=== PATIENT | female | born 1930 | race Caucasian/White ===

== ENCOUNTER 2017-01-13 10:47 | Observation (INO) ==
[2017-01-13 11:16] LABS: Basophils # 0.1 K/mcL (0.0-0.2); Basophils % 0.7 %; Eosinophils # 0.2 K/mcL (0.0-0.6); Eosinophils % 1.6 %; Hematocrit 37.8 % (35.3-44.9); Hemoglobin 12.7 g/dL (11.5-15.4); Immature Granulocytes % 0.2 % (0-4); Immature Platelets 5.6 % (1.1-6.1); Lymphocytes # 1.8 K/mcL (0.6-4.6); Lymphocytes % 17.7 %; Mean Corpuscular HGB Conc 33.6 g/dL (31.6-35.5); Mean Corpuscular Hemoglobin 29.8 pg (28.0-33.3); Mean Corpuscular Volume 88.7 fL (83.0-100.0); Mean Platelet Volume 10.5 fL (9.4-12.4); Monocytes # 0.9 K/mcL (0.0-1.3); Monocytes % 8.8 %; Platelet Count 246 K/mcL (140-400); Red Blood Count 4.26 M/mcL (3.82-4.97); Red Cell Distribution Width 14.4 % (11.5-14.5)
--- NOTE | 2017-01-13 11:17 | Emergency Department Note ---
Disposition Clinical Impression: Symptomatic bradycardia Atrial fibrillation Qualifiers: Atrial fibrillation type: paroxysmal Qualified Code(s): I48.0 - Paroxysmal atrial fibrillation Disposition: Admitted As Inpatient Condition: Good Referrals: NONE,PCP [Non-Partnered Physician] - Forms: ED Satisfaction Letter Time of Disposition: 13:13 Arrhythmia/Palpitations HPI - General Chief Complaint: ED Arrhythmia/Palpitations Stated Complaint: heart beat feels fast Time Seen by Provider: 01/13/17 10:57 Source: patient, family Limitations: no limitations Nursing Notes Reviewed: Yes Vital Signs Reviewed: Yes - History of Present Illness HPI Narrative: 87 year old female with HX of paroxsymal atrial fibrillation states that he is on rate controlling medication and blood thinners. States taht she woke up this morning and her heart rate felt like it was fast withou chest pain or shortness of breath. Will staets that this has happened to her in the past but it has been a long tie since she has been admitted to the hospital for it. Patient denies chest pain, shortness of breath, nausea, vomitting, or abdominlal pain. She does have elevated blood pressures and states that she was most recently told that she has a growth on her brain and her vision has become more blurry without increased headaches. It appears patient is in Atrial fibrillation at this time. - Related Data Home Medications Medication Instructions Recorded Confirmed Aspirin [Adult Low Dose Aspirin EC] 81 mg PO DAILY 08/07/15 08/07/15 Atorvastatin [Lipitor] 40 mg PO DAILY 08/07/15 08/07/15 Clopidogrel [Plavix] 75 mg PO DAILY 08/07/15 08/07/15 Hydrochlorothiazide [Microzide] 12.5 mg PO DAILY 08/07/15 08/07/15 Losartan [Cozaar] 50 mg PO DAILY 08/07/15 08/07/15 Metoprolol [Lopressor] 25 mg PO BID 08/07/15 08/07/15 Potassium Chloride [K-Tab ER] 20 meq PO DAILY 08/07/15 08/07/15 metFORMIN [Glucophage] 500 mg PO BIDWM 08/07/15 08/07/15 Allergies Allergy/AdvReac Type Severity Reaction Status Date / Time LOWELL Inhibitors Allergy Rash Verified 08/07/15 12:34 Constitutional: Denies: fever, chills, weakness, weight change Eyes: Denies: eye pain, eye discharge, vision change ENT ED: Denies: ear pain, throat pain, dental pain, hearing loss, epistaxis, congestion, dysphagia Cardiovascular: Reports: palpitations. Denies: chest pain, dyspnea on exertion , edema, syncope Respiratory: Denies: cough, dyspnea, wheezes, hemoptysis, stridor Gastrointestinal: Denies: abdominal pain, nausea, vomiting, diarrhea, constipation, hematemesis, melena, hematochezia Genitourinary: Denies: dysuria, frequency, hematuria, discharge Musculoskeletal: Denies: back pain, neck pain, arthralgia, myalgia Integumentary: Denies: rash, abrasion, lesions Neurological: Denies: headache, weakness, numbness, paresthesias, confusion, abnormal gait, vertigo Psychiatric: Denies: anxiety, depression, suicidal thoughts, homicidal thoughts , auditory hallucinations, visual hallucinations Endocrine: Denies: fatigue Hematological/Lymphatic: Denies: easy bleeding, easy bruising Allergic/Immunologic: Denies: facial swelling, urticaria Past Medical History - Past Medical History Medical history: Reports: atrial fibrillation, coronary artery disease, diabetes , hyperlipidemia, hypertension, other Surgical history: Reports: angioplasty/stent, cataract, hysterectomy Psychiatric history: Reports: no psych history GOODWILL AMBASSADOR history: Reports: no GOODWILL AMBASSADOR history - Social History Smoking Status: Never smoker Smokeless Tobacco Status: No Alcohol use: Reports: none Drug use: Reports: none Physical Exam - General Limitations: no limitations General appearance: alert, in no apparent distress - Head Head exam: atraumatic, normocephalic, normal inspection - Eye Eye exam: Present: normal appearance, PERRL, EOMI - Expanded Eye Exam Pupils: Left: reactive - ENT ENT exam: normal exam, normal oropharynx, mucous membranes moist - Expanded ENT Exam External ear exam: Present: normal external inspection Mouth exam: Present: normal external inspection Teeth exam: Present: normal inspection Throat exam: Present: normal inspection - Neck Neck exam: Present: normal inspection, full ROM, trachea midline - Chest Chest inspection: Present: normal inspection, symmetric chest wall rise - Respiratory Respiratory exam: Present: normal lung sounds bilaterally - Cardiovascular Cardiovascular exam: Present: tachycardia, irregular rhythm, normal heart sounds - Abdominal Exam Abdominal exam: Present: soft, Non-Tender. Absent: tenderness, distention, guarding, rebound, rigidity - Extremities Exam Extremities exam: Present: normal inspection, full ROM. Absent: tenderness, pedal edema - Expanded Upper Extremity Exam Shoulder exam: Present: normal inspection, full ROM Arm exam: Present: normal inspection, full ROM Elbow exam: Present: normal inspection, full ROM Forearm/Wrist exam: Present: normal inspection, full ROM Hand exam: Present: normal inspection, full ROM Vascular exam: Normal: capillary refill, radial pulse - Expanded Lower Extremity Exam Hip/Pelvis exam: Present: normal inspection, full ROM Upper leg exam: Present: normal inspection, full ROM Knee exam: Present: normal inspection, full ROM Lower leg exam: Present: normal inspection, full ROM Ankle exam: Present: normal inspection, full ROM Foot/toe exam: Present: normal inspection, full ROM Neurovascular/Tendon exam: Absent: motor deficit, sensory deficit, tendon deficit - Back Exam Back exam: Present: normal inspection, full ROM. Absent: tenderness - Neurological Exam Neurological exam: Present: alert, oriented X3 - Expanded Neurological Exam Patient oriented to: Present: person, place, time Coma Scale Eye Opening: Spontaneous Coma Scale Motor Response: Obeys Commands Coma Scale Verbal Response: Oriented Coma Scale Total: 15 - Psychiatric Psychiatric exam: Present: normal affect, normal mood - Skin Skin exam: Present: warm, dry, intact, normal color Course Course Narrative: we will treat her atril fibrillation with cardizem and do a chest pain workup on patient. If she does not convert then we will admit to medicine. - Reevaluation(s) Reevaluation #1: bro had a low heart rate alert it appears she is in juntional bradycardia and has converted out of atrial flutter. WE will continue to monitor Time: 11:58 - Consultations Consultation #1: discussed case with Dr. Kang and she accepts bro to her service. Bro is agreeable to plan. Time: 13:13 Vital Signs Temperature 97.8 F 01/13/17 10:54 Pulse Rate 127 01/13/17 10:54 Respiratory Rate 18 01/13/17 10:54 Blood Pressure 162/102 01/13/17 10:54 O2 Sat by Pulse Oximetry 95 01/13/17 10:54 Temperature 97.8 F 01/13/17 10:54 Pulse Rate 56 01/13/17 13:06 Respiratory Rate 18 01/13/17 13:06 Blood Pressure 140/65 01/13/17 13:06 O2 Sat by Pulse Oximetry 96 01/13/17 13:06 Oxygen Delivery Oxygen Delivery Room Air Arrhythmia/Palpitations - Lab Data Result diagrams: 01/13/17 11:09 01/13/17 11:09 Lab Results 01/13/17 01/13/17 01/13/17 Range/Units 11:09 11:09 11:09 WBC (4.3-11.1) K/mcL RBC (3.82-4.97) M/mcL Hgb (11.5-15.4) g/dL Hct (35.3-44.9) % MCV (83.0-100.0) fL MCH (28.0-33.3) pg MCHC (31.6-35.5) g/dL RDW (11.5-14.5) % Plt Count (140-400) K/mcL MPV (9.4-12.4) fL Immature Gran % (0-4) % Seg Neutrophils % % Lymphocytes % % Monocytes % % Eosinophils % % Basophils % % Neutrophils # (1.6-8.9) K/mcL Lymphocytes # (0.6-4.6) K/mcL Monocytes # (0.0-1.3) K/mcL Eosinophils # (0.0-0.6) K/mcL Basophils # (0.0-0.2) K/mcL Immature Plt Fraction (1.1-6.1) % PT 11.6 (9.4-12.1) Seconds INR 1.1 APTT 32.2 (26.0-36.0) Seconds Sodium (136-145) mEq/L Potassium (3.5-4.5) mEq/L Chloride (98-109) mEq/L Carbon Dioxide (19-29) mEq/L BUN (7-20) mg/dL Creatinine (0.57-1.11) mg/dL Est GFR ( Amer) (> 60) Est GFR (Non-Af Amer) (> 60) BUN/Creatinine Ratio (6-26) Glucose (70-99) mg/dL Calculated Osmolality (280-300) Calcium (8.6-10.8) mg/dL Total Bilirubin 1.2 (0.2-1.2) mg/dL Direct Bilirubin 0.5 (0.0-0.5) mg/dL Indirect Bilirubin 0.7 (0.0-1.2) mg/dL AST 17 (5-34) Units/L ALT 15 (0-55) Units/L Alkaline Phosphatase 46 (38-126) Units/L Troponin I (0-0.03) ng/mL B-Natriuretic Peptide 318 H (0-100) pg/mL Serum Total Protein 7.5 (6.0-8.3) g/dL Albumin 4.1 (3.5-5.0) g/dL Globulin 3.4 (2.4-3.5) g/dL Albumin/Globulin Ratio 1.2 (1.1-2.2) Lipase 21 (8-78) Units/L 01/13/17 01/13/17 01/13/17 Range/Units 11:09 11:09 11:09 WBC 9.9 (4.3-11.1) K/mcL RBC 4.26 (3.82-4.97) M/mcL Hgb 12.7 (11.5-15.4) g/dL Hct 37.8 (35.3-44.9) % MCV 88.7 (83.0-100.0) fL MCH 29.8 (28.0-33.3) pg MCHC 33.6 (31.6-35.5) g/dL RDW 14.4 (11.5-14.5) % Plt Count 246 (140-400) K/mcL MPV 10.5 (9.4-12.4) fL Immature Gran % 0.2 (0-4) % Seg Neutrophils % 71.0 % Lymphocytes % 17.7 % Monocytes % 8.8 % Eosinophils % 1.6 % Basophils % 0.7 % Neutrophils # 7.0 (1.6-8.9) K/mcL Lymphocytes # 1.8 (0.6-4.6) K/mcL Monocytes # 0.9 (0.0-1.3) K/mcL Eosinophils # 0.2 (0.0-0.6) K/mcL Basophils # 0.1 (0.0-0.2) K/mcL Immature Plt Fraction 5.6 (1.1-6.1) % PT (9.4-12.1) Seconds INR APTT (26.0-36.0) Seconds Sodium 140 (136-145) mEq/L Potassium 3.9 (3.5-4.5) mEq/L Chloride 105 (98-109) mEq/L Carbon Dioxide 24 (19-29) mEq/L BUN 18 (7-20) mg/dL Creatinine 0.82 (0.57-1.11) mg/dL Est GFR ( Amer) > 60 (> 60) Est GFR (Non-Af Amer) > 60 (> 60) BUN/Creatinine Ratio 22 (6-26) Glucose 161 H (70-99) mg/dL Calculated Osmolality 295 (280-300) Calcium 9.7 (8.6-10.8) mg/dL Total Bilirubin (0.2-1.2) mg/dL Direct Bilirubin (0.0-0.5) mg/dL Indirect Bilirubin (0.0-1.2) mg/dL AST (5-34) Units/L ALT (0-55) Units/L Alkaline Phosphatase (38-126) Units/L Troponin I 0.00 (0-0.03) ng/mL B-Natriuretic Peptide (0-100) pg/mL Serum Total Protein (6.0-8.3) g/dL Albumin (3.5-5.0) g/dL Globulin (2.4-3.5) g/dL Albumin/Globulin Ratio (1.1-2.2) Lipase (8-78) Units/L - EKG Data EKG attestation: Yes I reviewed and interpreted this EKG. EKG results narrative: atrial flutter with rate of 115. LVH and non spefici ST-T changes. NO STEMI. changed from 08/07/15 (NSR). 1056 junctional bradycardia with rate of 51. change from EKG #1 converted out of atrial fibrillation. 1145 sinus bradycardia with 1degree AV block with rate of 58. NO STEMI. 1215
[2017-01-13 11:30] LABS: BUN/Creatinine Ratio 22 (6-26); Blood Urea Nitrogen 18 mg/dL (7-20); Calcium 9.7 mg/dL (8.6-10.8); Carbon Dioxide 24 mEq/L (19-29); Chloride 105 mEq/L (98-109); Glucose 161 mg/dL (70-99); Osmolality,Calculated 295 (280-300); Potassium 3.9 mEq/L (3.5-4.5); Sodium 140 mEq/L (136-145); eGFR For African Americans > 60 (> 60); eGFR For Non-African Americans > 60 (> 60)
[2017-01-13 11:32] LABS: Albumin 4.1 g/dL (3.5-5.0); Albumin/Globulin Ratio 1.2 (1.1-2.2); Bilirubin,Direct 0.5 mg/dL (0.0-0.5); Bilirubin,Indirect 0.7 mg/dL (0.0-1.2); Bilirubin,Total 1.2 mg/dL (0.2-1.2); Globulin 3.4 g/dL (2.4-3.5); Total Protein 7.5 g/dL (6.0-8.3)
[2017-01-13 12:19] LABS: INR 1.1; Prothrombin Time 11.6 Seconds (9.4-12.1)
[2017-01-13 12:22] LABS: Activated Partial Thrombo Time 32.2 Seconds (26.0-36.0)
[2017-01-13 13:57] LABS: Bilirubin,Urine Negative (Negative); Blood,Urine Negative (Negative); Clarity,Urine Clear (Clear); Color,Urine Yellow (Yellow); Glucose,Urine (UA) Normal (Normal); Ketones,Urine Negative (Negative); Leukocyte Esterase,Urine Small (Negative); Nitrite,Urine Negative (Negative); PH,Urine 7.5 pH Units (5.0-8.0); Protein,Urine Negative (Neg-Trace); Specific Gravity,Urine 1.008 (1.010-1.025); Urobilinogen,Urine Normal (Normal)
[2017-01-13 13:59] LABS: Bacteria,Urine Many per hpf (None-Few); Hyaline Casts,Urine None Seen per lpf (None-Few); RBC,Urine 0-3 per hpf (0-3); Squamous Epithelial Cell,Urine Few per lpf (None-Few)
[2017-01-13] MEDS ORDERED: Naloxone 0.4 MG/ML INJ IVP PRN (15:07)
[2017-01-13] MEDS ORDERED: Acetaminophen 325 MG TABLET PO PRN (15:27)
--- NOTE | 2017-01-13 15:46 | Internal Med History&Physical ---
<Ni Olevra - Last Filed: 01/13/17 15:03> Date of Encounter: 01/13/17 Time of Encounter: 15:45 Assessment and Plan (1) Symptomatic bradycardia Current visit: Yes Status: Acute Patient coverted to a junctional bradycardia with HR in low 50s and experienced dizziness and lightheadedness when that occurred in the ED. Her rhythm further evolved back to her baseline with sinus bradycardia and first degree AV block. She is now asymptomatic. Continuous satellite project site monitor. Consider consult to cardiology if arrhythmia recurs. (2) Atrial fibrillation Current visit: Yes Status: Acute Patient presented with palpitations and was found to be in Afib/aflutter with RVR. She reports occasional similar episoded of palpitations and chest pain lasting up to 2 hours. She converted without intervention. Continuous satellite project site monitor. Continue home dose of metoprolol. Patient not on anti-coagulation. Consider consult to cardiology if RVR recurrs. Qualifiers: Atrial fibrillation type: paroxysmal Qualified Code(s): I48.0 - Paroxysmal atrial fibrillation (3) Type 2 diabetes mellitus Current visit: Yes Status: Acute Hold metformin check Hgb A1c diabetic, heart healthy diet check blood sugar ACHS sliding scale correction dose ACHS hypoglycemic protocol. Qualifiers: Diabetes mellitus complication status: without complication Diabetes mellitus senior living insulin use: without terminal supervisor use Qualified Code(s): E11.9 - Type 2 diabetes mellitus without complications (4) History of coronary artery disease Current visit: Yes Status: Chronic CAD s/p Stents to LAD and OM. Patient did have chest pain this morning while she was having palpitations, likely secondary to her afib/RVR. Troponin negative at 0.00. EKG has returned to baseline. Continuous satellite project site monitor serial troponins continue aspirin, plavix, metoprolol, and statin. (5) DVT prophylaxis Current visit: Yes Status: Acute anti-embolic stockings heparin 5000u SQ TID Internal Medicine - H&P: HPI Chief complaint: palpitations History of present illness: Ms. Urena is a 87 year old female with HTN, HLD, type 2 DM, CAD s/p stent placement, Afib presents to the ED today with complaints of palpitations and chest pain. Patient reports when she woke this morning, she felt her heart racing and her chest was aching. She took 2 nitro with no resolution of symptoms so she came to the ED. She reports she has occasional similar episodes of palpitations and chest pain that usually resolve after about 2 hours , but came because this episode did not resolve. While in the ED, she converted to a junctional bradycardic rhythm without intervention, and at that time became lightheaded. Otherwise she denies shortness of breath, nausea, vomiting, fever, chills, sweats, dysuria, diarrhea. Evaluation in the ED included EKG initially which showed Aflutter with RVR, HR of 115 at 10:56. She converted on her own and EKG at 11:45 showed junctional bradycardia with HR of 51. Final EKG in the ED at 12:15 showed sinus bradycardia with 1st degree AV block, HR of 58, and consistent with her baseline EKG from 08/2015. Troponin was negative at 0.00. BNP was elevated at 318. CXR showed no acute process with mild cardiomegaly. Head CT showed no acute intracranial abnormality. On exam, patient alert and oriented, in no distress. Heart had regular rhythm with rate in the low 60s. Lungs were clear bilaterally. She had BLE +2 edema, which she reports is consistent with her baseline. Past Med Surg Social Fam HX - Past Medical History Medical history: atrial fibrillation, coronary artery disease, diabetes, hyperlipidemia, hypertension, other Psychiatric history: no psych history - Past Surgical History Surgical History: angioplasty/stent, cataract, hysterectomy - Social History Smoking Status: Never smoker Smokeless Tobacco Status: No Alcohol use: none Drug use: none - Family History Mother Living Status: Age at : 78 Hx Family Cancer: Yes Father Living Status: Age at : 70 Hx Family Cardiac Disorders: Yes Internal Medicine - H&P: Meds Aspirin [Adult Low Dose Aspirin EC] 81 mg PO DAILY 08/07/15 [History] Atorvastatin [Lipitor] 40 mg PO DAILY 08/07/15 [History] Clopidogrel [Plavix] 75 mg PO DAILY 08/07/15 [History] Hydrochlorothiazide [Microzide] 12.5 mg PO DAILY 08/07/15 [History] Losartan [Cozaar] 50 mg PO DAILY 08/07/15 [History] Metoprolol [Lopressor] 25 mg PO BID 08/07/15 [History] Potassium Chloride [K-Tab ER] 20 meq PO DAILY 08/07/15 [History] metFORMIN [Glucophage] 500 mg PO BIDWM 08/07/15 [History] Allergies LOWELL Inhibitors Allergy (Verified 01/13/17 14:03) See Comments PATIENT STATES CAUSES SWELLING All Systems PM: A 10-system review of systems was performed and is negative for pertinent findings except as documented above in the HPI. - Constitutional Constitutional: no chills, no fever(s), no night sweats - EENT Eyes: no change in vision, no discharge, no pain, no photophobia Ears: no ear discharge, no ear pain, no tinnitus Nose, mouth and throat: no dysphagia, no nasal discharge, no neck pain, no sore throat - Cardiovascular Cardiovascular ROS IM: chest pain, lightheadedness, palpitations, no diaphoresis , no dyspnea, no syncope - Respiratory Respiratory: no cough, no dyspnea, no wheezing, no excessive phlegm production - Gastrointestinal Gastrointestinal: no abdominal pain, no diarrhea, no hematemesis, no hematochezia, no melena, no nausea, no vomiting - Genitourinary Genitourinary: no change in urinary stream, no dysuria, no flank pain, no hematuria - Musculoskeletal Musculoskeletal ROS IM: no numbness, no tingling - Integumentary Integumentary IM: no rash, no unusual bruising - Neurological Neurological ROS: no confusion, no convulsions, no focal weakness, no numbness, no tingling, no tremor(s) - Hematologic/Lymphatic Hematologic/Lymphatic: no easy bruising - Constitutional Vitals: Temp Pulse Resp BP Pulse Ox 97.8 F 61 18 108/93 98 01/13/17 10:54 01/13/17 14:12 01/13/17 14:12 01/13/17 14:12 01/13/17 14:12 General appearance: Present: A&O X 3, pleasant, no acute distress - Head Head exam: Present: atraumatic, normocephalic - Eye Eye exam: Present: PERRL, conjuntiva pink, sclera anicteric Pupils: Present: PERRL - Neck Neck exam general surgery: Present: supple, trachea midline. Absent: lymphadenopathy - Respiratory Respiratory exam: Present: CTAB. Absent: accessory muscle use, rales, rhonchi, wheezes - Cardiovascular Cardiovascular exam: Present: RRR, +S1, +S2, systolic murmur. Absent: diastolic murmur, gallop, rubs - GI/Abdominal GI/Abdominal exam: Present: normal bowel sounds, soft, no peritoneal signs. Absent: distended, tenderness - Extremities Exam Extremities exam: Present: warm, radial pulses palpable and symmetrical. Absent : calf tenderness, cyanotic, pedal edema - Neurological Exam Neurological exam: Present: CN II-XII intact, oriented X3, no focal deficits. Absent: facial droop, speech deficit - Skin Skin exam: Present: dry, intact Internal Med - H&P Results - Labs CBC & Chem 7: 01/13/17 11:09 01/13/17 11:09 Labs: Short CBC 01/13/17 Range/Units 11:09 WBC 9.9 (4.3-11.1) K/mcL Hgb 12.7 (11.5-15.4) g/dL Hct 37.8 (35.3-44.9) % Plt Count 246 (140-400) K/mcL Neutrophils # 7.0 (1.6-8.9) K/mcL BMP 01/13/17 11:09 Sodium 140 Potassium 3.9 Chloride 105 Carbon Dioxide 24 BUN 18 Creatinine 0.82 Glucose 161 H Calcium 9.7 Cardiac Enzymes 01/13/17 Range/Units 11:09 Troponin I 0.00 (0-0.03) ng/mL Liver Function 01/13/17 Range/Units 11:09 Total Bilirubin 1.2 (0.2-1.2) mg/dL Direct Bilirubin 0.5 (0.0-0.5) mg/dL AST 17 (5-34) Units/L ALT 15 (0-55) Units/L Alkaline Phosphatase 46 (38-126) Units/L Albumin 4.1 (3.5-5.0) g/dL Urine 01/13/17 Range/Units 13:48 Urine Color Yellow (Yellow) Urine Clarity Clear (Clear) Urine pH 7.5 (5.0-8.0) pH Units Ur Specific [place] 1.008 L (1.010-1.025) Urine Protein Negative (Neg-Trace) mg/dL Urine Glucose (UA) Normal (Normal) mg/dL - Impressions ITS Impressions Chest X-Ray 01/13/17 10:57 IMPRESSION: No acute process. Mild cardiomegaly D/ / Luciano Cole MD / Luciano Cole MD Interpreting Provider: Luciano Cole MD Head CT 01/13/17 12:10 IMPRESSION: No acute intracranial abnormality. Old right occipital lobe infarct. Mild chronic small vessel ischemic disease within the periventricular white matter. D/ / 01/13/2017 12:48:26 Luciano Cole MD / carmelina Interpreting Provider: Luciano Cole MD - Diagnostic Studies Chest x-ray Additional comments: Chest X-Ray 01/13/17 10:57 IMPRESSION: No acute process. Mild cardiomegaly D/ / Luciano Cole MD / Luciano Cole MD Interpreting Provider: Luciano Cole MD CT scan - head Additional comments: Head CT 01/13/17 12:10 IMPRESSION: No acute intracranial abnormality. Old right occipital lobe infarct. Mild chronic small vessel ischemic disease within the periventricular white matter. D/ / 01/13/2017 12:48:26 Luciano Cole MD / carmelina Interpreting Provider: Luciano Cole MD <Gus Kang - Last Filed: 01/13/17 18:17> Date of Encounter: 01/13/17 Internal Medicine - H&P: HPI History of present illness: Ms. Urena is a 87 year old female All Systems PM: A 10-system review of systems was performed and is negative for pertinent findings except as documented above in the HPI. - Constitutional Vitals: Temp Pulse Resp BP Pulse Ox 97.5 F L 62 18 128/66 97 01/13/17 16:36 01/13/17 16:36 01/13/17 16:36 01/13/17 16:36 01/13/17 16:41 Internal Med - H&P Results - Labs CBC & Chem 7: 01/13/17 11:09 01/13/17 11:09 Labs: Cardiac Enzymes 01/13/17 Range/Units 17:26 Troponin I 0.01 (0-0.03) ng/mL - Attending Attestation I examined this patient and my medical decision-making was reviewed with the HASHER OPERATOR. I agree with the documented findings, disposition and treatment plan as described
[2017-01-13] MEDS ORDERED: D5% in Water 1,000 ML IVC PRN (16:00)
[2017-01-13] MEDS ORDERED: Dextrose Gel 15 GM PO PRN ×2 (16:00)
[2017-01-13] MEDS ORDERED: *HR* Dextrose 50 % in Water (Syg) 50 ML SYRINGE IVP PRN (16:00)
[2017-01-13] MEDS: Insulin LISPRO 300 UNITS/3 ML VIAL SQ SCH ×2 (17:16→21:30)
[2017-01-13 17:48] LABS: Hemoglobin A1C 6.1 %
[2017-01-13] MEDS: *HR* Heparin 5,000 UNIT/ML VIAL SQ SCH (20:47)
[2017-01-14 04:22] LABS: Basophils # 0.1 K/mcL (0.0-0.2); Basophils % 0.7 %; Eosinophils # 0.5 K/mcL (0.0-0.6); Eosinophils % 4.8 %; Hematocrit 34.1 % (35.3-44.9); Immature Granulocytes % 0.3 % (0-4); Lymphocytes % 21.5 %; Mean Corpuscular HGB Conc 32.6 g/dL (31.6-35.5); Mean Corpuscular Hemoglobin 30.2 pg (28.0-33.3); Mean Corpuscular Volume 92.7 fL (83.0-100.0); Monocytes # 0.9 K/mcL (0.0-1.3); Monocytes % 9.7 %; Nucleated Red Blood Cells 0.2 /100 WBC (0); Platelet Count 202 K/mcL (140-400); Red Blood Count 3.68 M/mcL (3.82-4.97); Red Cell Distribution Width 14.6 % (11.5-14.5)
[2017-01-14 04:26] LABS: Hemoglobin 11.1 g/dL (11.5-15.4)
[2017-01-14 04:38] LABS: BUN/Creatinine Ratio 29 (6-26); Blood Urea Nitrogen 25 mg/dL (7-20); Carbon Dioxide 25 mEq/L (19-29); Chloride 109 mEq/L (98-109); Chol/HDL Ratio 2.9 (0-4.9); Cholesterol 117 mg/dL (< 200); Glucose 136 mg/dL (70-99); HDL Cholesterol 41 mg/dL (40-59); LDL Cholesterol,Calculated 59 mg/dL (0-99); Osmolality,Calculated 298 (280-300); Potassium 3.8 mEq/L (3.5-4.5); Sodium 141 mEq/L (136-145); Triglycerides 83 mg/dL (< 150); eGFR For African Americans > 60 (> 60); eGFR For Non-African Americans > 60 (> 60)
[2017-01-14] MEDS: *HR* Heparin 5,000 UNIT/ML VIAL SQ SCH ×3 (05:54→21:06)
[2017-01-14] MEDS: Aspirin Enteric Coated 81 MG Tablet PO SCH (08:44)
[2017-01-14] MEDS: hydroCHLOROthiazide 25 MG TABLET PO SCH (08:44)
[2017-01-14] MEDS: Insulin LISPRO 300 UNITS/3 ML VIAL SQ SCH ×4 (08:45→21:04)
--- NOTE | 2017-01-14 11:29 | Internal Med Progress Note ---
Date of Encounter: 01/14/17 Time of Encounter: 11:28 - Assessment and plan (1) Symptomatic bradycardia Current Visit: Yes Status: Acute Assessment and plan: Patient initially presented with palpitations and had atrial fibrillation with RVR, which converted to junctional rhythm and then sinus bradycardia; she likely has conduction abnormality. Currently heart rate controlled; continue to hold beta bharath and Telemetry monitoring; check 2D Echocardiogram and Cardiology consult; (2) Atrial fibrillation Current Visit: Yes Status: Chronic Assessment and plan: Patient has h/o- atrial fibrillation, not noted to be on manager long term care anticoagulation; continue Telemetry; Cardiology evaluation for pacemaker placement; Qualifiers: Atrial fibrillation type: paroxysmal Qualified Code(s): I48.0 - Paroxysmal atrial fibrillation (3) Diabetes Current Visit: Yes Status: Chronic Assessment and plan: Accucheck blood glucose monitoring with sliding scale insulin as needed; diabetic diet; Qualifiers: Diabetes mellitus type: type 2 Diabetes mellitus complication status: with unspecified complications Diabetes mellitus care home insulin use: without care home use Qualified Code(s): E11.8 - Type 2 diabetes mellitus with unspecified complications (4) History of coronary artery disease Current Visit: Yes Status: Chronic (5) History of hypertension Current Visit: Yes Status: Chronic - Subjective Interval history: Denies chest pain, palpitations, dyspnea; has chronic leg swelling; improved dizziness and weakness; - Constitutional Vitals: Temp Pulse Resp BP Pulse Ox 97.7 F 53 18 174/68 98 01/14/17 07:14 01/14/17 07:14 01/14/17 07:14 01/14/17 07:14 01/14/17 07:14 General appearance: Present: A&O X 3, answers questions appropriately - Respiratory Respiratory exam: Present: CTAB. Absent: accessory muscle use, rales, rhonchi, wheezes - Cardiovascular Cardiovascular exam: Present: bradycardia, RRR, +S1, +S2, systolic murmur. Absent: diastolic murmur, gallop, rubs - Extremities Exam Extremities exam: Present: full ROM, pedal edema (1+ lower leg edema), warm, radial pulses palpable and symmetrical. Absent: calf tenderness, cyanotic - Neurological Exam Neurological exam: Present: CN II-XII intact, oriented X3, no focal deficits. Absent: pronater drift, facial droop, speech deficit Internal Medicine: Result - Labs CBC & Chem 7: 01/14/17 03:45 01/14/17 03:45 Labs: Short CBC 01/14/17 Range/Units 03:45 WBC 9.5 (4.3-11.1) K/mcL Hgb 11.1 L D (11.5-15.4) g/dL Hct 34.1 L (35.3-44.9) % Plt Count 202 (140-400) K/mcL Neutrophils # 6.0 (1.6-8.9) K/mcL BMP 01/14/17 03:45 Sodium 141 Potassium 3.8 Chloride 109 Carbon Dioxide 25 BUN 25 H Creatinine 0.87 Glucose 136 H Calcium 9.0 Cardiac Enzymes 01/13/17 01/13/17 Range/Units 17:26 23:08 Troponin I 0.01 0.01 (0-0.03) ng/mL - ABG Interpretation ABG results: PT/INR, D-dimer PT 11.6 Seconds (9.4-12.1) 01/13/17 11:09 Consult Discharge Plan - Plan Referrals: Tomas Gallegos DO [Primary Care Provider] -
--- NOTE | 2017-01-14 17:52 | Electrocardiograph Report ---
[address] [place] [address] Test Date: 2017-01-13 Pat Name: Sharda Urena Department: 104 Room: 2NE20 Gender: F [employer] Consultant: BRANDON : 1930 Requested By: Denise Hidalgo Order Number: [id number] Reading MD: Rosalinda Barnes Measurements Intervals [place] Rate: 58 P: 79 AL: 225 QRS: -18 QRSD: 100 T: 46 QT: 443 QTc: 441 Interpretive Statements SINUS BRADYCARDIA WITH FIRST DEGREE AV BLOCK MINIMAL VOLTAGE CRITERIA FOR LVH POSSIBLE ANTERIOR MYOCARDIAL INFARCTION, OF INDETERMINATE AGE INFERIOR MYOCARDIAL INFARCTION, PROBABLY OLD Electronically Signed On 01-14-2017 17:51:04 EDT by Rosalinda Barnes
--- NOTE | 2017-01-14 17:52 | Electrocardiograph Report ---
[place] [id number] Test Date: 2017-01-13 Pat Name: Sharda Urena Department: 104 Room: 2NE20 Gender: F [employer]ing Officer: ZOHREH : 1930 Requested By: Leticia Gonzalez Order Number: [id number] Reading MD: Rosalinda Barnes Measurements Intervals [place] Rate: 51 P: 270 HI: 124 QRS: -18 QRSD: 100 T: 40 QT: 432 QTc: 409 Interpretive Statements POSSIBLE ECTOPIC ATRIAL RHYTHM MINIMAL VOLTAGE CRITERIA FOR LVH POSSIBLE ANTERIOR MYOCARDIAL INFARCTION, PROBABLY OLD INFERIOR MYOCARDIAL INFARCTION, PROBABLY OLD Electronically Signed On 01-14-2017 17:50:40 EDT by Rosalinda Barnes
[2017-01-15] MEDS: *HR* Heparin 5,000 UNIT/ML VIAL SQ SCH ×3 (05:44→22:23)
[2017-01-15] MEDS: Aspirin Enteric Coated 81 MG Tablet PO SCH (07:39)
[2017-01-15] MEDS: hydroCHLOROthiazide 25 MG TABLET PO SCH (07:39)
[2017-01-15] MEDS: Insulin LISPRO 300 UNITS/3 ML VIAL SQ SCH ×4 (07:52→22:30)
--- NOTE | 2017-01-15 10:03 | Cardiology Consult Note ---
<Phil Timmons - Last Filed: 01/15/17 17:37> Date of Encounter: 01/15/17 Time of Encounter: 09:30 Assessment and Plan (1) Symptomatic bradycardia Status: Acute Current EKG shows a sinus bradycardia with a 1st degree AV block, which is the patient's baseline. Current echocardiogram shows severely dialated LA and mildly dilated RA. Thyroid studies are recommened. Patient does not snore or display any dyspnea at night. She is very functional at home and is able to ambulate with ease without shortness of breath or chest pain. Pacemaker is not recommended at this point. (2) Atrial fibrillation Status: Chronic Patient is very functional at home and is able to ambulate without shortness of breath or chest pain. She denies any history of falls. I believe it would be safe to continue anticoagulation with aspirin and plavix. Qualifiers: Atrial fibrillation type: paroxysmal Qualified Code(s): I48.0 - Paroxysmal atrial fibrillation (3) Diastolic heart failure Status: Acute Current echocardiogram shows an EF of 65-70% with moderate LV diastolic dysfunction and a severely dilated LA. BP range in the past 24 hours was 139/60- 174/68. Patient's metoprolol was stopped and placed on Coreg 6.25 mg BID PO. Qualifiers: Qualified Code(s): I50.30 - Unspecified diastolic (congestive) heart failure (4) CAD (coronary artery disease) Status: Acute Patient currently on aspirin, lipitor, coreg, and plavix. Patient presented with bruit in carotid arteries bilaterally. Last carotid ultrasound was over 3 years ago according to patient. Recommend new carotid ultrasound evaluation. Qualifiers: Qualified Code(s): I25.10 - Atherosclerotic heart disease of [place] coronary artery without angina pectoris (5) Hyperlipidemia Status: Chronic Continue statin. Qualifiers: Qualified Code(s): E78.5 - Hyperlipidemia, unspecified (6) History of hypertension Status: Chronic Continue HCTZ and losartan. Discussion w patient/family: The assessment and plan as outlined above was discussed with the patient and/or family members who expressed understanding and agreement. All questions were answered. Thank you for involving us in the care of your patient. Please call with any questions. History of Present Illness Consult date: 01/15/17 Requesting physician: Denise Hidalgo Consult reason: Symptomatic bradycardia, h/o A-Fib Chief complaint: Heart palpitations History of present illness: Ms. Urena is a 87 year old female with a PMH of A-Fib CAD, and s/p stent placement that presented to the ER on 01/13/17 for heart palpitations and chest pain. She says that she normally experiences episodes of her heart racing along with some chest aches that last for 2 hours, but in this time it lasted longer without any relief from her nitro tabs. She came into the ED with an EKG showing atrial flutter RVR and then converted in a junctional bradycardia and finally to a sinus bradycardia with 1st degree AV block, from which an EKG obtained from 08/07/2015 shows that is her baseline. Troponin was negative on arrival. BNP was 318 on arrival . Chest x-ray showed mild cardiomegaly. Her echocardiogram done on 01/14/17 showed an EF of 65-70% with normal LV systolic function and moderate LV diastolic dysfunction along with a severely dialted LA. When spoken to today, she denies any chest pain, palpitations, shortness of breath, headaches, light headedness, or syncope. Past Med Surg Social Fam HX - Past Medical History Medical history: atrial fibrillation, coronary artery disease, diabetes, hyperlipidemia, hypertension, other Psychiatric history: no psych history - Past Surgical History Surgical History: angioplasty/stent, cataract, hysterectomy - Social History Smoking Status: Never smoker Smokeless Tobacco Status: No Alcohol use: none Drug use: none - Family History Mother Living Status: Age at : 78 Hx Family Cancer: Yes Father Living Status: Age at : 70 Hx Family Cardiac Disorders: Yes Hx Family Respiratory Disorders: No Hx Family Cancer: No Hx Family GI Disorders: No Hx Family Genitourinary Disorders: No Hx Family Endocrine Disorder: No Hx Family Musculoskeletal Disorders: No Hx Family Neuromuscular Disorders: No Hx Family Neurologic Disorders: No Hx Family HEENT Disorders: No Hx Family Autoimmune Disorders: No Hx Family Reproductive Disorders: No Hx Family Psychosocial Disorders: No Hx Family Medical Disorders: No Medications and Allergies Aspirin [Adult Low Dose Aspirin EC] 81 mg PO DAILY 08/07/15 [History] Atorvastatin [Lipitor] 40 mg PO DAILY 08/07/15 [History] Clopidogrel [Plavix] 75 mg PO DAILY 08/07/15 [History] Hydrochlorothiazide [Microzide] 12.5 mg PO DAILY 08/07/15 [History] Losartan [Cozaar] 50 mg PO DAILY 08/07/15 [History] Potassium Chloride [K-Tab ER] 20 meq PO DAILY 08/07/15 [History] metFORMIN [Glucophage] 500 mg PO BIDWM 08/07/15 [History] Carvedilol [Coreg] 6.25 mg PO BIDWM #60 tab 01/16/17 [Rx] Cefuroxime PO [Ceftin] 250 mg PO Q12HR #20 tab 01/16/17 [Rx] Allergies LOWELL Inhibitors Allergy (Verified 01/13/17 14:03) See Comments PATIENT STATES CAUSES SWELLING All Systems Review: A 10-system review of systems was performed and is negative for pertinent findings except as documented above in the HPI. - Cardiovascular Cardiovascular: leg edema (Chronic. ), no chest pain at rest, no chest pain with exertion, no dyspnea at rest, no dyspnea on exertion, no radiating jaw, neck or arm pain, no lightheadedness, no palpitations, no rapid heart rate, no syncope - Neurological Neurological: no numbness, no syncope, no tingling Physical Examination Vital Signs, Last 4 Hours Temp Pulse Resp BP Pulse Ox 01/15/17 07:19 97.8 F 58 18 157/68 97 General: Conversant, No Apparent Distress Neck: No JVD, Other (Systolic ejection murmur evident in carotids bilaterally. ) Cardiac: Other (Bradycardic with 2/6 systolic ejection murmur. ) Lungs: Normal Breath Sounds, No Wheeze, Rales, Rhonchi Neuro: Alert and responsive Musculoskeletal: No Chest Wall Tenderness Extremities: No Clubbing, No Cyanosis, Normal Pulses, Other (+2 bilateral pitting edema of lower extremeties. ) Results 01/14/17 03:45 01/14/17 03:45 Laboratory Tests 01/13/17 01/13/17 01/13/17 11:09 11:09 11:09 Hgb INR 1.1 Sodium Potassium BUN Est GFR (Non-Af Amer) BUN/Creatinine Ratio Troponin I 0.00 B-Natriuretic Peptide 318 H 01/14/17 01/14/17 03:45 03:45 Hgb 11.1 L D INR Sodium 141 Potassium 3.8 BUN 25 H Est GFR (Non-Af Amer) > 60 BUN/Creatinine Ratio 29 H Troponin I B-Natriuretic Peptide - Imaging and Cardiology Chest Xray: report reviewed (01/13/17: mild cardiomegaly) Echo: report reviewed (01/14/17: 65-70% EF. Normal LV systolic function, moderate LV diastolic dysfunction, severely dialted LA, moderate aortic stenosis , aortic regurtitation.) Other Results: Head CT: no acute intracranial abnormality. - EKG Interpretation EKG results cardiology: personally reviewed (01/13/17 at 12:15: Sinus bradycardia with 1st degree AV block. No ST-elevations.) Consult Discharge Plan - Plan Instructions: Cefuroxime (By mouth), Carvedilol (By mouth), Atrial Fibrillation (DC), Urinary Tract Infection in Women (DC), Urinary Tract Infection in Women (GEN), Diabetes Mellitus Type 2 in Adults (DC), Bradycardia ( DC), Bradycardia (GEN) Referrals: Tomas Gallegos DO [Primary Care Provider] - Prescriptions: Cefuroxime PO [Ceftin] 250 mg PO Q12HR #20 tab Carvedilol [Coreg] 6.25 mg PO BIDWM #60 tab <Harley Galan - Last Filed: 01/17/17 10:33> Date of Encounter: 01/17/17 Assessment and Plan Discussion w patient/family: The assessment and plan as outlined above was discussed with the patient and/or family members who expressed understanding and agreement. All questions were answered. Thank you for involving us in the care of your patient. Please call with any questions. History of Present Illness History of present illness: Ms. Urena is a 87 year old female All Systems Review: A 10-system review of systems was performed and is negative for pertinent findings except as documented above in the HPI. Physical Examination Vital Signs, Last 4 Hours Temp Pulse Resp BP Pulse Ox 01/16/17 11:09 97.6 F 55 14 152/67 98 Results 01/14/17 03:45 01/14/17 03:45 Lab Results 01/15/17 13:44 TSH 1.799
--- NOTE | 2017-01-15 16:03 | Internal Med Progress Note ---
Date of Encounter: 01/15/17 Time of Encounter: 10:30 - Assessment and plan (1) Symptomatic bradycardia Current Visit: Yes Status: Acute Assessment and plan: Patient initially presented with palpitations and had atrial fibrillation with RVR, which converted to junctional rhythm and then sinus bradycardia; she likely has conduction abnormality. Currently heart rate controlled; continue beta bharath and Telemetry monitoring; 2D Echocardiogram shows preserved ejection fraction, mild LVOT obstruction at rest, moderate left ventricular diastolic dysfunction, biatrial dilatation, PFO or small ASD, moderate aortic stenosis and moderate mitral stenosis, mild pulmonary hypertension. Most of these findings have been stable since 1 year except slight progression of aortic stenosis. Follow-up Cardiology consult; (2) Atrial fibrillation Current Visit: Yes Status: Chronic Assessment and plan: Patient has h/o- atrial fibrillation, not noted to be on fpc anticoagulation; continue Telemetry; Cardiology evaluation for pacemaker placement; Qualifiers: Atrial fibrillation type: paroxysmal Qualified Code(s): I48.0 - Paroxysmal atrial fibrillation (3) Diabetes Current Visit: Yes Status: Chronic Assessment and plan: Accucheck blood glucose monitoring with sliding scale insulin as needed; diabetic diet; Qualifiers: Diabetes mellitus type: type 2 Diabetes mellitus complication status: with unspecified complications Diabetes mellitus fpc insulin use: without fpc use Qualified Code(s): E11.8 - Type 2 diabetes mellitus with unspecified complications (4) History of coronary artery disease Current Visit: Yes Status: Chronic (5) History of hypertension Current Visit: Yes Status: Chronic - Subjective Interval history: Denies chest pain, palpitations, dyspnea; has chronic leg swelling; improved dizziness and weakness; - Constitutional Vitals: Temp Pulse Resp BP Pulse Ox 97.8 F 67 18 157/68 97 01/15/17 15:39 01/15/17 15:39 01/15/17 15:39 01/15/17 15:39 01/15/17 15:39 General appearance: Present: A&O X 3, answers questions appropriately - Respiratory Respiratory exam: Present: CTAB. Absent: accessory muscle use, rales, rhonchi, wheezes - Cardiovascular Cardiovascular exam: Present: RRR, +S1, +S2. Absent: diastolic murmur, gallop, rubs, systolic murmur - GI/Abdominal GI/Abdominal exam: Present: normal bowel sounds, soft, no peritoneal signs. Absent: distended, tenderness - Extremities Exam Extremities exam: Present: full ROM, warm, radial pulses palpable and symmetrical. Absent: calf tenderness, cyanotic, pedal edema Internal Medicine: Result - Labs CBC & Chem 7: 01/14/17 03:45 01/14/17 03:45 - ABG Interpretation ABG results: PT/INR, D-dimer PT 11.6 Seconds (9.4-12.1) 01/13/17 11:09 Consult Discharge Plan - Plan Referrals: Tomas Gallegos DO [Primary Care Provider] -
[2017-01-16] MEDS: *HR* Heparin 5,000 UNIT/ML VIAL SQ SCH ×2 (05:52→16:37)
[2017-01-16] MEDS: hydroCHLOROthiazide 25 MG TABLET PO SCH (08:10)
[2017-01-16] MEDS: Aspirin Enteric Coated 81 MG Tablet PO SCH (08:11)
[2017-01-16] MEDS: Insulin LISPRO 300 UNITS/3 ML VIAL SQ SCH ×3 (08:11→16:43)
[2017-01-16 16:07] VITALS: BP 148/59
--- NOTE | 2017-01-16 16:27 | Cardiology Progress Note ---
<KatelinfrenchPhil henao - Last Filed: 01/16/17 17:11> Date of Encounter: 01/16/17 Time of Encounter: 15:30 Assessment and Plan (1) Symptomatic bradycardia Status: Resolved Current EKG shows a sinus bradycardia with a 1st degree AV block, which is the patient's baseline. Current echocardiogram shows severely dialated LA and mildly dilated RA. Patient does not snore or display any dyspnea at night. She is very functional at home and is able to ambulate with ease without shortness of breath or chest pain. Thyroid studies are normal. Urine culture came back positive for E.coli. It is possible her symptomatic bradycardia was brought about by a UTI. Patient's pulse range for the past 24 hours is from 55-58. Patient is currently not symptomatic and denies any shortness of breath, chest pain, or palpitations. Pacemaker is not recommended at this point. (2) Atrial fibrillation Status: Chronic Patient is very functional at home and is able to ambulate without shortness of breath or chest pain. She denies any history of falls. Continue anticoagulation with aspirin and plavix. Qualifiers: Atrial fibrillation type: paroxysmal Qualified Code(s): I48.0 - Paroxysmal atrial fibrillation (3) Diastolic heart failure Status: Acute Current echocardiogram shows an EF of 65-70% with moderate LV diastolic dysfunction and a severely dilated LA. BP has improved in the past 24 hours with a range from 138/58-158/66. Continue Coreg 6.25 mg BID PO. Qualifiers: Qualified Code(s): I50.30 - Unspecified diastolic (congestive) heart failure (4) CAD (coronary artery disease) Status: Chronic Patient currently on aspirin, lipitor, coreg, and plavix. Patient presented with bruit in carotid arteries bilaterally. Last carotid ultrasound was over 3 years ago according to patient. Results of carotid ultrasound are still pending. Qualifiers: Qualified Code(s): I25.10 - Atherosclerotic heart disease of [place] coronary artery without angina pectoris (5) Aortic stenosis Status: Chronic Current echocardiogram from 01/14/17 shows an aortic valve area of 1.40. +2 Systolic ejection murmur present on physical exam. Patient will need to follow- up in outpatient. Qualifiers: Qualified Code(s): I35.0 - Nonrheumatic aortic (valve) stenosis (6) Hyperlipidemia Status: Chronic Continue statin. Qualifiers: Qualified Code(s): E78.5 - Hyperlipidemia, unspecified (7) History of hypertension Status: Chronic Continue HCTZ and losartan. Discussion w patient/family: The assessment and plan as outlined above was discussed with the patient and/or family members who expressed understanding and agreement. All questions were answered. Thank you for involving us in the care of your patient. Please call with any questions. Subjective Principal diagnosis: Symptomatic bradycardia Interval history: Spoke to patient today and she denies any chest pain, shortness of breath, headaches, vision blurriness, heart palpitations, syncope, nause, or vomiting. Objective Vital Signs, Last 4 Hours Temp Pulse Resp BP Pulse Ox 01/16/17 15:59 98.2 F 55 14 148/59 99 General: Conversant, No Apparent Distress Neck: No JVD, Other (Bruits detected in carotids bilaterally. ) Cardiac: Reg Rate and Rhythm, Other (+2 systolic ejection murmur ) Lungs: Normal Breath Sounds, No Wheeze, Rales, Rhonchi Neuro: Alert and responsive Musculoskeletal: No Chest Wall Tenderness Extremities: No Clubbing, No Cyanosis, Normal Pulses, Other (+1 pitting edema bilaterally of lower extremeties. Chronic issue. ) Results 01/14/17 03:45 01/14/17 03:45 Consult Discharge Plan - Plan Instructions: Cefuroxime (By mouth), Carvedilol (By mouth), Atrial Fibrillation (DC), Urinary Tract Infection in Women (DC), Urinary Tract Infection in Women (GEN), Diabetes Mellitus Type 2 in Adults (DC), Bradycardia ( DC), Bradycardia (GEN) Referrals: Tomas Gallegos, [Primary Care Provider] - Prescriptions: Cefuroxime PO [Ceftin] 250 mg PO Q12HR #20 tab Carvedilol [Coreg] 6.25 mg PO BIDWM #60 tab <Harley Galan - Last Filed: 01/16/17 20:22> Date of Encounter: 01/16/17 Assessment and Plan Discussion w patient/family: The assessment and plan as outlined above was discussed with the patient and/or family members who expressed understanding and agreement. All questions were answered. Thank you for involving us in the care of your patient. Please call with any questions. Results 01/14/17 03:45 01/14/17 03:45 - Attending Attestation Pt seen and examined independently, chart reviewed, above findings confirmed CC: fatigue, Pt reports dizziness with change in position have resolved with switch form metoprolol to Coreg. She reports is able to ambulate in her room without symptoms of chest pain, pressure or shortness of breath. IMP:PLAN 1. Bradycardia - has improved with switch off metoprolol to Coreg. Although heart rate is high fifties, he has adequate chronotropic response to increased activity on current medication, with resolution of dizziness and near syncope. Pt is at low risk for hospital discharge, will continue to monitor as outpatient.
--- NOTE | 2017-01-16 16:28 | Carotid Imaging Report ---
Carotid Duplex Patient Name:Sharda Urena Order Number:[id number] Procedure Date:01/15/2017 Date:1930Age:87 yrs Gender:Female Rt.BP:157 / 68 mmHgHeart Rate: Location:[facility] Room #: 2NE20 Transfer Worker:Rolanda Paul RDCS Referring MD:Shweta Hidalgo MD tin flipper:DO Breezy Rdz MD:Eric Calderón MD Primary Indications:Bruit Risk Factors Yes/No Hypertension Yes Diabetes Yes Hypercholesterolemia Yes Hx of CAD/PTCA Yes Impressions: The right internal carotid artery has a 60-79% stenosis. The left carotid artery has minimal plaque throughout. Recommendations: Risk factor reduction. Further evaluation recommended if clinically indicated. Follow-up carotid duplex in 1 year. Findings Carotid Duplex: Right: The right proximal common carotid artery has a PSV of 109 cm/s and a EDV of 15 cm/s. The right mid common carotid artery has a PSV of 68 cm/s and a EDV of 14 cm/s. The right distal common carotid artery has a PSV of 76 cm/s and a EDV of 16 cm/s. There is nonstenotic plaque in the right bifurcation with a PSV of 78 cm/s and a EDV of 12 cm/s. The right proximal internal carotid artery has a PSV of 97 cm/s and a EDV of 21 cm/s. The right mid internal carotid artery has a PSV of 121 cm/s and a EDV of 35 cm/s. There is 60-79% stenosis in the right distal internal carotid artery with a PSV of 172 cm/s and a EDV of 47 cm/s. The right eca has a PSV of 118 cm/s and a EDV of 2 cm/s. The right vertebral artery has a PSV of 72 cm/s and a EDV of 23 cm/s. There is antegrade spectral Doppler flow patterns. Left: The left proximal common carotid artery has a PSV of 95 cm/s and a EDV of 16 cm/s. The left mid common carotid artery has a PSV of 78 cm/s and a EDV of 16 cm/s. The left distal common carotid artery has a PSV of 79 cm/s and a EDV of 17 cm/s. The left bifurcation has a PSV of 67 cm/s and a EDV of 15 cm/s. There is nonstenotic plaque in the left proximal internal carotid artery with a PSV of 106 cm/s and a EDV of 26 cm/s. The left mid internal carotid artery has a PSV of 99 cm/s and a EDV of 24 cm/s. The left distal internal carotid artery has a PSV of 103 cm/s and a EDV of 20 cm/s. The left eca has a PSV of 104 cm/s and a EDV of 2 cm/s. The left vertebral artery has a PSV of 45 cm/s and a EDV of 14 cm/s. There is antegrade spectral Doppler flow patterns. Prior Study: No significant change compared to prior study dated: 12/21/2015. Carotid Results Right PSV EDV Assessment Proximal CCA 109 15 Mid CCA 68 14 Distal CCA 76 16 Bifurcation 78 12 Non Stenotic Plaque Proximal ICA 97 21 Mid ICA 121 35 Distal ICA 172 47 60-79% stenosis ECA 118 2 Vertebral Artery 72 23 Antegrade Flow Left PSV EDV Assessment Proximal CCA 95 16 Mid CCA 78 16 Distal CCA 79 17 Bifurcation 67 15 Proximal ICA 106 26 Non Stenotic Plaque Mid ICA 99 24 Distal ICA 103 20 ECA 104 2 Vertebral Artery 45 14 Antegrade Flow Ratio's Right ICA/CCA Ratio: 2.53 ICA/CCA Values: 172/68 Left ICA/CCA Ratio: 1.36 ICA/CCA Values: 106/78 Updated by Eric Calderón MD on 01/16/2017 4:23:20 PM electronically signed on 01/16/2017 4:23:37 PM with status of Final
--- NOTE | 2017-01-16 17:32 | Discharge Summary ---
Date of Encounter: 01/16/17 Time of Encounter: 17:30 - Discharge Diagnosis (1) Aortic stenosis Priority: Secondary Status: Chronic Qualifiers: Qualified Code(s): I35.0 - Nonrheumatic aortic (valve) stenosis (2) Atrial fibrillation Priority: Secondary Status: Chronic Qualifiers: Atrial fibrillation type: paroxysmal Qualified Code(s): I48.0 - Paroxysmal atrial fibrillation (3) Diabetes Priority: Secondary Status: Chronic Qualifiers: Diabetes mellitus type: type 2 Diabetes mellitus complication status: with unspecified complications Diabetes mellitus custodial insulin use: without custodial use Qualified Code(s): E11.8 - Type 2 diabetes mellitus with unspecified complications (4) History of coronary artery disease Priority: Secondary Status: Chronic (5) History of hypertension Priority: Secondary Status: Chronic (6) Hyperlipidemia Priority: Secondary Status: Chronic Qualifiers: Qualified Code(s): E78.5 - Hyperlipidemia, unspecified (7) Symptomatic bradycardia Priority: Primary Status: Resolved (8) UTI (urinary tract infection) Priority: Secondary Status: Acute Qualifiers: Qualified Code(s): N39.0 - Urinary tract infection, site not specified; R31.9 - Hematuria, unspecified - Discharge Medications Prescriptions: Cefuroxime PO [Ceftin] 250 mg PO Q12HR #20 tab Carvedilol [Coreg] 6.25 mg PO BIDWM #60 tab Home Medications: Aspirin [Adult Low Dose Aspirin EC] 81 mg PO DAILY 08/07/15 [History] Atorvastatin [Lipitor] 40 mg PO DAILY 08/07/15 [History] Clopidogrel [Plavix] 75 mg PO DAILY 08/07/15 [History] Hydrochlorothiazide [Microzide] 12.5 mg PO DAILY 08/07/15 [History] Losartan [Cozaar] 50 mg PO DAILY 08/07/15 [History] Potassium Chloride [K-Tab ER] 20 meq PO DAILY 08/07/15 [History] metFORMIN [Glucophage] 500 mg PO BIDWM 08/07/15 [History] Carvedilol [Coreg] 6.25 mg PO BIDWM #60 tab 01/16/17 [Rx] Cefuroxime PO [Ceftin] 250 mg PO Q12HR #20 tab 01/16/17 [Rx] Allergies/Adverse Reactions: Allergies LOWELL Inhibitors Allergy (Verified 01/13/17 14:03) See Comments PATIENT STATES CAUSES SWELLING Procedures/tests Complete & Pending: Procedures Performed prior 72 hours Category Date Time Status EV carotid duplex imaging BI Routine Y 01/15/17 13:33 Completed EV echocardiogram Routine Y 01/14/17 11:27 Completed Date of admission: 01/13/17 15:37 Primary care physician: Tomas Gallegos DO Consults: 01/14/17 11:27 Consult to Cardiology [CONS] Routine Comment: Consulting Provider: Cardiology Princess Reason for Consult: Symptomatic bradycardia, h/o- A.fib Call Completed: No Discharging clinician: Sarah Payne Anticipated date of discharge: 01/16/17 - Patient Status Disposition: Home, Self-Care Condition: Good Overall status at discharge: patient is progressing back to baseline - Discharge Instructions Instructions: Cefuroxime (By mouth), Carvedilol (By mouth), Atrial Fibrillation (DC), Urinary Tract Infection in Women (DC), Urinary Tract Infection in Women (GEN), Diabetes Mellitus Type 2 in Adults (DC), Bradycardia ( DC), Bradycardia (GEN) Follow Up With: Tomas Gallegos DO [Primary Care Provider] - - Diet and Activity Activity: resume usual activities as tolerated Diet: advance to your usual diet, diabetic diet, low fat, low cholesterol, low salt diet Hospital course: Ms. Urena is a 87 year old female .Patient initially presented with palpitations and had atrial fibrillation with RVR, which converted to junctional rhythm and then sinus bradycardia; she likely has conduction abnormality. Currently heart rate controlled; switch Lopressor with Coreg. 2D Echocardiogram shows preserved ejection fraction, mild LVOT obstruction at rest , moderate left ventricular diastolic dysfunction, biatrial dilatation, PFO or small ASD, moderate aortic stenosis and moderate mitral stenosis, mild pulmonary hypertension. Most of these findings have been stable since 1 year except slight progression of aortic stenosis. Cardiology was consulted. Her TSH was noted around 1.7. She was noted to have UTI with the Escherichia coli sensitive to cephalosporins and therefore started on Rocephin initially and now switched to Ceftin. Cardiology feels that the bradycardia could be related to UTI. She is ambulatory asymptomatic and she will be discharged home. - Time Spent with Patient Total time spent providing and/or coordinating discharge services: Greater than 30 minutes - Constitutional Vitals: Temp Pulse Resp BP Pulse Ox 98.2 F 55 14 148/59 99 01/16/17 15:59 01/16/17 15:59 01/16/17 15:59 01/16/17 15:59 01/16/17 15:59 General appearance: Present: A&O X 3, answers questions appropriately - Head Head exam: Present: atraumatic, normocephalic - Eye Eye exam: Present: PERRL, conjuntiva pink, sclera anicteric Pupils: Present: PERRL - Neck Neck exam general surgery: Present: supple, trachea midline. Absent: lymphadenopathy - Respiratory Respiratory exam: Present: CTAB. Absent: accessory muscle use, rales, rhonchi, wheezes - Cardiovascular Cardiovascular exam: Present: RRR, +S1, +S2. Absent: diastolic murmur, gallop, rubs, systolic murmur - GI/Abdominal GI/Abdominal exam: Present: normal bowel sounds, soft, no peritoneal signs. Absent: distended, tenderness - Extremities Exam Extremities exam: Present: warm, radial pulses palpable and symmetrical. Absent : calf tenderness, cyanotic, pedal edema - Neurological Exam Neurological exam: Present: CN II-XII intact, oriented X3, no focal deficits. Absent: pronater drift, facial droop, speech deficit - Skin Skin exam: Present: dry, intact
[2017-01-16] MEDS ORDERED: Cefuroxime PO 250 MG TABLET PO SCH (18:00)
== END 2017-01-16 18:30 | disposition home or self-care (01) ==
LOC: 2NENU 10:47 → EMEROO 10:47 → 2NENU 16:20
PROVIDERS: ADMIT Internal Medicine Endocrinology, Diabetes & Metabolism; ATTEND Internal Medicine

== ENCOUNTER 2018-09-06 10:52 | Observation (INO) ==
--- NOTE | 2018-09-06 11:05 | Emergency Department Note ---
Disposition Clinical Impression: Hypokalemia Chest pain Qualifiers: Chest pain type: unspecified Qualified Code(s): R07.9 - Chest pain, unspecified Disposition: Admitted As Inpatient Condition: Fair Referrals: Tomas Gallegos DO [Primary Care Provider] - Forms: ED Satisfaction Letter Time of Disposition: 13:00 General Adult HPI - General Chief complaint: ED Chest Pain Stated complaint: CP Time Seen by Provider: 09/06/18 11:02 Source: patient Limitations: no limitations - History of Present Illness Pain Scale: 2 - Related Data Home Medications Medication Instructions Recorded Confirmed Aspirin [Adult Low Dose Aspirin EC] 81 mg PO DAILY 08/07/15 08/07/15 Atorvastatin [Lipitor] 40 mg PO DAILY 08/07/15 08/07/15 Clopidogrel [Plavix] 75 mg PO DAILY 08/07/15 08/07/15 Hydrochlorothiazide [Microzide] 12.5 mg PO DAILY 08/07/15 08/07/15 Losartan [Cozaar] 50 mg PO DAILY 08/07/15 08/07/15 Potassium Chloride [K-Tab ER] 20 meq PO DAILY 08/07/15 08/07/15 metFORMIN [Glucophage] 500 mg PO BIDWM 08/07/15 08/07/15 Previous Rx's Medication Instructions Recorded Carvedilol [Coreg] 6.25 mg PO BIDWM #60 tab 01/16/17 Cefuroxime PO [Ceftin] 250 mg PO Q12HR #20 tab 01/16/17 Furosemide [Lasix] 20 mg PO DAILY #3 tablet 06/22/18 Allergies Allergy/AdvReac Type Severity Reaction Status Date / Time LOWELL Inhibitors Allergy See Verified 09/06/18 10:59 Comments Past Medical History - Past Medical History Medical history: Reports: atrial fibrillation, coronary artery disease, diabetes, hyperlipidemia, hypertension Surgical history: Reports: angioplasty/stent, cataract, hysterectomy Psychiatric history: Reports: no psych history RN NEW GRAD history: Reports: no RN NEW GRAD history - Social History Smoking Status: Never smoker Smokeless Tobacco Status: No Alcohol use: Reports: none Drug use: Reports: none Physical Exam - General Limitations: no limitations General appearance: alert, in no apparent distress Course Vital Signs Temperature 97.9 F 09/06/18 10:56 Pulse Rate 69 09/06/18 10:56 Respiratory Rate 14 09/06/18 10:56 Blood Pressure 127/81 09/06/18 10:56 O2 Sat by Pulse Oximetry 94 09/06/18 10:56 Temperature 97.9 F 09/06/18 10:56 Pulse Rate 69 09/06/18 10:56 Respiratory Rate 14 09/06/18 10:56 Blood Pressure 127/81 09/06/18 10:56 O2 Sat by Pulse Oximetry 94 09/06/18 10:56 Oxygen Delivery Oxygen Delivery Room Air Medical Decision Making - Lab Data Result diagrams: 09/06/18 11:40 09/06/18 11:40 Lab Results 09/06/18 09/06/18 09/06/18 Range/Units 11:40 11:40 11:40 WBC 11.7 H (4.3-11.1) K/mcL RBC 4.19 (3.82-4.97) M/mcL Hgb 13.0 (11.5-15.4) g/dL Hct 38.2 (35.3-44.9) % MCV 91.2 (83.0-100.0) fL MCH 31.0 (28.0-33.3) pg MCHC 34.0 (31.6-35.5) g/dL RDW 15.0 H (11.5-14.5) % Plt Count 201 (140-400) K/mcL MPV 11.1 (9.4-12.4) fL Immature Gran % 0.4 (0-4) % Seg Neutrophils % 78.3 % Lymphocytes % 8.5 % Monocytes % 12.3 % Eosinophils % 0.2 % Basophils % 0.3 % Neutrophils # 9.1 H (1.6-8.9) K/mcL Lymphocytes # 1.0 (0.6-4.6) K/mcL Monocytes # 1.4 H (0.0-1.3) K/mcL Eosinophils # 0.0 (0.0-0.6) K/mcL Basophils # 0.0 (0.0-0.2) K/mcL Nucleated RBCs/100 WBC 0.2 H (0) /100 WBC PT 12.0 (9.4-12.1) Seconds INR 1.1 Sodium 137 (136-145) mEq/L Potassium 2.8 L (3.5-5.1) mEq/L Chloride 101 (98-107) mEq/L Carbon Dioxide 23 (23-29) mEq/L BUN 24 H (8-23) mg/dL Creatinine 0.83 (0.60-1.20) mg/dL Est GFR ( Amer) > 60 (> 60) Est GFR (Non-Af Amer) > 60 (> 60) BUN/Creatinine Ratio 29 H (6-26) Glucose 196 H (70-105) mg/dL Calculated Osmolality 293 (280-300) Calcium 8.7 (8.6-10.3) mg/dL Magnesium 2.0 (1.6-2.6) mg/dL Total Bilirubin 1.1 H (0.3-1.0) mg/dL AST 26 (13-39) Units/L ALT 21 (7-52) Units/L Alkaline Phosphatase 38 (34-104) Units/L Troponin I 0.03 (< 0.04) ng/mL Serum Total Protein 6.8 (6.4-8.9) g/dL Albumin 4.2 (3.5-5.7) g/dL Globulin 2.6 (2.4-3.5) g/dL Albumin/Globulin Ratio 1.6 (1.1-2.2) Lipase 20 (11-82) Units/L Attestation Statement - Attestation Attestation: I examined this patient and my medical decision-[facility]. I agree with the documented findings, disposition and treatment plan as described except to the extent set forth below. [id number] time provided Patient presents with chest pain. She appears in no acute distress on exam. The patient was evaluated in conjunction with the resident physician Dr. Dumont. Triage note and vitals reviewed by me 13:15: Dr. Aquino except admission and recommends an additional 40 mEq of potassium by mouth in addition to the 40 mEq already ordered orally and 20 mEq intravenously
--- NOTE | 2018-09-06 11:21 | Emergency Department Note ---
Disposition Clinical Impression: Hypokalemia Chest pain Qualifiers: Chest pain type: other chest pain Qualified Code(s): R07.89 - Other chest pain Disposition: Admitted As Inpatient Condition: Fair Time of Disposition: 21:09 General Adult HPI - General Chief complaint: ED Chest Pain Stated complaint: CP Time Seen by Provider: 09/06/18 11:02 Source: patient Limitations: no limitations Nursing Notes Reviewed: Yes Vital Signs Reviewed: Yes - History of Present Illness HPI Narrative: This is an 88-year-old female with past medical history significant for atrial fibrillation, coronary artery disease, diabetes who presents today with left- sided chest pain, nausea and vomiting, diarrhea over the course of the past week. Patient states that she has been vomiting for 1 week almost daily, associated with nausea. States vomitus is very green in color, nonbloody. She also states that she has been having watery diarrhea multiple times over the past week, and describes it as very green as well, nonbloody. She states associated symptoms include a left-sided chest pain, described as dull, achy that is unrelieved with nitroglycerin. It is not really pain so much is throbbing and palpitations she describes. Patient has also had chills. She otherwise denies fevers, headache, vision changes, chest pain, difficulty breathing, wheezing, abdominal pain, worsening fatigue, lethargy. Additionally denies dysuria, urgency, frequency. Patient states that she has a history of skin cancer that was removed about 3 weeks ago. Symptoms only started after that. Pt Subjective Complaint: Chest Pain; Nausea, Vomiting Onset (ago): week(s) (One week) Location: chest Radiation: non-radiation Pain Severity: mild Pain Scale: 2 Consistency: constant Associated symptoms: Reports: chest pain, fever/chills, loss of appetite, malaise, nausea/vomiting. Denies: confusion, cough, diaphoresis, headaches, rash, shortness of breath, weakness - Related Data Home Medications Medication Instructions Recorded Confirmed RX: Atorvastatin [Lipitor] 40 mg PO DAILY 08/07/15 09/06/18 RX: Clopidogrel [Plavix] 75 mg PO DAILY 08/07/15 09/06/18 RX: Losartan [Cozaar] 50 mg PO DAILY 08/07/15 09/06/18 RX: Potassium Chloride [K-Tab ER] 20 meq PO DAILY 08/07/15 09/06/18 RX: metFORMIN [Glucophage] 500 mg PO BIDWM 08/07/15 09/06/18 Aspirin [Lo-Dose Aspirin EC] 81 mg PO DAILY 09/06/18 09/06/18 Metoprolol [Lopressor] 25 mg PO BID 09/06/18 09/06/18 RX: hydroCHLOROthiazide 12.5 mg PO DAILY 09/06/18 09/06/18 [Hydrochlorothiazide] Previous Rx's Medication Instructions Recorded Furosemide [Lasix] 20 mg PO DAILY #3 tablet 06/22/18 Allergies Allergy/AdvReac Type Severity Reaction Status Date / Time LOWELL Inhibitors Allergy See Verified 09/06/18 10:59 Comments All systems ED: reviewed and negative except as stated. Constitutional: Reports: chills. Denies: fever, weakness, night sweats Eyes: Denies: vision change ENT ED: Denies: hearing loss, congestion Cardiovascular: Reports: chest pain, palpitations, edema (Mild pedal edema). Denies: dyspnea on exertion, orthopnea, syncope Respiratory: Denies: cough, dyspnea, wheezes Gastrointestinal: Reports: nausea, vomiting, diarrhea. Denies: abdominal pain, hematemesis, melena, hematochezia Genitourinary: Denies: urgency, dysuria, frequency, hematuria Musculoskeletal: Denies: back pain, neck pain Integumentary: Denies: rash Neurological: Denies: headache, weakness, numbness, paresthesias Endocrine: Reports: fatigue Past Medical History - Past Medical History Attestation: Yes The following information was validated with the patient. Source: patient, old records reviewed Medical history: Reports: atrial fibrillation, coronary artery disease, diabetes, hyperlipidemia, hypertension Surgical history: Reports: angioplasty/stent, cataract, hysterectomy Psychiatric history: Reports: no psych history [employer] history: Reports: no [employer] history - Social History Smoking Status: Never smoker Smokeless Tobacco Status: No Alcohol use: Reports: none Drug use: Reports: none Physical Exam - General Limitations: no limitations General appearance: alert, in no apparent distress - Head Head exam: atraumatic, normocephalic, normal inspection - Eye Eye exam: Present: normal appearance, PERRL, EOMI - ENT ENT exam: normal exam, normal oropharynx, mucous membranes moist - Neck Neck exam: Present: normal inspection, full ROM - Chest Chest inspection: Present: normal inspection, symmetric chest wall rise, tenderness (Mild tenderness to palpation across the anterior chest) - Respiratory Respiratory exam: Present: normal lung sounds bilaterally. Absent: respiratory distress, wheezes, prolonged expiratory phase - Cardiovascular Cardiovascular exam: Present: regular rate, irregular rhythm, normal heart paxton nds, +S1, +S2 - Abdominal Exam Abdominal exam: Present: soft, Non-Tender, normal bowel sounds. Absent: distention, guarding, rebound, rigidity - Extremities Exam Extremities exam: Present: normal inspection, full ROM, normal capillary refill, pedal edema (Mild pedal edema bilaterally) - Back Exam Back exam: Present: normal inspection, full ROM. Absent: tenderness, CVA tenderness (R), CVA tenderness (L) - Neurological Exam Neurological exam: Present: alert, oriented X3, CN II-XII intact - Psychiatric Psychiatric exam: Present: normal affect, normal mood - Skin Skin exam: Present: warm, dry, intact, normal color Course - Reevaluation(s) Reevaluation #1: Patient was seen and examined at bedside. Routine labs, chest x-ray, EKG were ordered. Patient has slightly elevated white count = 11.7. She also has hypokalemia = 2.8. Chest x-ray was negative. Time: 12:44 Reevaluation #2: Potassium was replaced. Patient was admitted to hospitalist service. Time: 21:09 Vital Signs Temperature 97.9 F 09/06/18 10:56 Pulse Rate 69 09/06/18 10:56 Respiratory Rate 14 09/06/18 10:56 Blood Pressure 127/81 09/06/18 10:56 O2 Sat by Pulse Oximetry 94 09/06/18 10:56 Temperature 97.6 F 09/06/18 19:00 Pulse Rate 75 09/06/18 19:00 Respiratory Rate 17 09/06/18 19:00 Blood Pressure 149/83 09/06/18 19:00 O2 Sat by Pulse Oximetry 96 09/06/18 19:00 Oxygen Delivery Oxygen Delivery Room Air Medical Decision Making - MDM Narrative Medical decision making narrative: 88-year-old female with past medical history significant for A. fib, CAD, diabetes presented today with left-sided chest pain, nausea and vomiting, diarrhea over the course of the past week. Vomiting was green in color and diarrhea was also green in color. On exam, there were no acute findings. Lab work showed the patient was hypokalemic = 2.8. Potassium was replaced. Chest x-ray showed no acute process. Patient was admitted to the hospitalist service due to chest pain. - Differential Diagnosis Chest pain, hypokalemia - Medical Records Medical records reviewed: Yes I reviewed the patient's medical records. - Lab Data Lab results reviewed: Yes I reviewed the patient's lab results. Result diagrams: 09/06/18 11:40 09/06/18 11:40 Lab Results 09/06/18 09/06/18 09/06/18 Range/Units 11:40 11:40 11:40 WBC 11.7 H (4.3-11.1) K/mcL RBC 4.19 (3.82-4.97) M/mcL Hgb 13.0 (11.5-15.4) g/dL Hct 38.2 (35.3-44.9) % MCV 91.2 (83.0-100.0) fL MCH 31.0 (28.0-33.3) pg MCHC 34.0 (31.6-35.5) g/dL RDW 15.0 H (11.5-14.5) % Plt Count 201 (140-400) K/mcL MPV 11.1 (9.4-12.4) fL Immature Gran % 0.4 (0-4) % Seg Neutrophils % 78.3 % Lymphocytes % 8.5 % Monocytes % 12.3 % Eosinophils % 0.2 % Basophils % 0.3 % Neutrophils # 9.1 H (1.6-8.9) K/mcL Lymphocytes # 1.0 (0.6-4.6) K/mcL Monocytes # 1.4 H (0.0-1.3) K/mcL Eosinophils # 0.0 (0.0-0.6) K/mcL Basophils # 0.0 (0.0-0.2) K/mcL Nucleated RBCs/100 WBC 0.2 H (0) /100 WBC PT 12.0 (9.4-12.1) Seconds INR 1.1 Sodium 137 (136-145) mEq/L Potassium 2.8 L (3.5-5.1) mEq/L Chloride 101 (98-107) mEq/L Carbon Dioxide 23 (23-29) mEq/L BUN 24 H (8-23) mg/dL Creatinine 0.83 (0.60-1.20) mg/dL Est GFR ( Amer) > 60 (> 60) Est GFR (Non-Af Amer) > 60 (> 60) BUN/Creatinine Ratio 29 H (6-26) Glucose 196 H (70-105) mg/dL Calculated Osmolality 293 (280-300) Calcium 8.7 (8.6-10.3) mg/dL Magnesium 2.0 (1.6-2.6) mg/dL Total Bilirubin 1.1 H (0.3-1.0) mg/dL AST 26 (13-39) Units/L ALT 21 (7-52) Units/L Alkaline Phosphatase 38 (34-104) Units/L Troponin I 0.03 (< 0.04) ng/mL Serum Total Protein 6.8 (6.4-8.9) g/dL Albumin 4.2 (3.5-5.7) g/dL Globulin 2.6 (2.4-3.5) g/dL Albumin/Globulin Ratio 1.6 (1.1-2.2) Lipase 20 (11-82) Units/L - Radiology Data Radiology results reviewed: Yes I reviewed the patient's radiology results. - EKG Data EKG #1 EKG attestation: Yes I reviewed and interpreted this EKG. EKG results narrative: HR = 61, WI 75, QRS Was 107, QTC = 416. Normal Sinus Rhythm. Normal [place]. Patient Has Multiple Premature Atrial Complexes. Otherwise No Acute ST Changes.
[2018-09-06 12:01] LABS: Basophils % 0.3 %; Eosinophils % 0.2 %; Hematocrit 38.2 % (35.3-44.9); Immature Granulocytes % 0.4 % (0-4); Lymphocytes % 8.5 %; Mean Corpuscular Volume 91.2 fL (83.0-100.0); Mean Platelet Volume 11.1 fL (9.4-12.4); Monocytes # 1.4 K/mcL (0.0-1.3); Monocytes % 12.3 %; Neutrophils # 9.1 K/mcL (1.6-8.9); Nucleated Red Blood Cells 0.2 /100 WBC (0); Platelet Count 201 K/mcL (140-400); Red Blood Count 4.19 M/mcL (3.82-4.97); Segmented Neutrophils % 78.3 %
[2018-09-06 12:11] LABS: INR 1.1
[2018-09-06 12:35] LABS: Alanine Aminotransferase 21 Units/L (7-52); Albumin 4.2 g/dL (3.5-5.7); Albumin/Globulin Ratio 1.6 (1.1-2.2); Alkaline Phosphatase 38 Units/L (34-104); Aspartate Amino Transferase 26 Units/L (13-39); BUN/Creatinine Ratio 29 (6-26); Bilirubin,Total 1.1 mg/dL (0.3-1.0); Blood Urea Nitrogen 24 mg/dL (8-23); Calcium 8.7 mg/dL (8.6-10.3); Carbon Dioxide 23 mEq/L (23-29); Chloride 101 mEq/L (98-107); Globulin 2.6 g/dL (2.4-3.5); Glucose 196 mg/dL (70-105); Lipase 20 Units/L (11-82); Osmolality,Calculated 293 (280-300); Potassium 2.8 mEq/L (3.5-5.1); Sodium 137 mEq/L (136-145); Total Protein 6.8 g/dL (6.4-8.9); Troponin I 0.03 ng/mL (< 0.04); eGFR For Non-African Americans > 60 (> 60)
[2018-09-06] MEDS ORDERED: Potassium Chloride 20 MEQ, Lidocaine 1% 2 ML in D5% in Water 250 ML IVPB ONE (12:44)
[2018-09-06] MEDS ORDERED: Potassium Chloride Elixir 20 MEQ/15 ML UDC PO ONE (13:10)
[2018-09-06] MEDS ORDERED: Dextrose Gel 15 GM/37.5 ML TUBE PO PRN ×2 (14:32)
[2018-09-06] MEDS ORDERED: Naloxone 0.4 MG/ML INJ IVP PRN (14:32)
[2018-09-06] MEDS ORDERED: Ondansetron 4 MG/2 ML VIAL IVP PRN (14:32)
[2018-09-06] MEDS ORDERED: *HR* Dextrose 50 % in Water (Syg) 50 ML SYRINGE IVP PRN (14:32)
[2018-09-06] MEDS ORDERED: traMADol 50 MG TABLET PO PRN (14:32)
[2018-09-06] MEDS ORDERED: Acetaminophen 325 MG TABLET PO PRN (14:32)
[2018-09-06] MEDS ORDERED: Mag Hydrox/Al Hydrox/Simeth 30 ML UDC PO PRN (14:32)
[2018-09-06] MEDS ORDERED: D5% in Water 1,000 ML IVC PRN (14:32)
--- NOTE | 2018-09-06 14:44 | Internal Med History&Physical ---
Date of Encounter: 09/06/18 Time of Encounter: 14:00 Internal Medicine - H&P: HPI Chief complaint: Chest pain nausea and vomiting, diarrhea Admitted From: Home Plans for Post Hospital Care: Home History of present illness: Ms. Urena is a 88 year old female with a past medical history of atrial fibrillation, coronary artery disease, diabetes type 2 without any insulin who presented today with nausea and vomiting which has been going on for about a week, diarrhea which is nonbloody and nonbilious again going on for about 4 days and last 2-3 days of substernal chest pain which has gotten worse in the last 48 hours. Most of the history is obtained from the patient and her daughter at the bedside. The patient and her family have been undergoing significant stresses which are related to poor health care of several family members. About a week or so ago the patient started getting nausea and vomiting which has been ongoing ever since. The patient states she has been had difficulty in eating and keeping the food down and has had at least 4-5 episodes of non-biliary nonbloody emesis every single day. She has still been able to take her medications although there have been instances when she has not kept her medications down or they have come right back up after a vomiting episode. She is unable to recol lect whether there has been any true sick contacts in the week preceding this past week. This is been not associated with any abdominal pain, fevers or chills. She does feel overall very lethargic and weak presumably from lack of good oral intake. About 4-5 days ago the patient started getting diarrheal episodes and she continues to this date. She has had about 3-5 episodes of nonbloody watery d iarrhea has been described anywhere from clear to green in color for the last 4- 5 days. Not associated again with any blood in the stools or abdominal pain. She then noticed left-sided chest pain which slowly got bad over the last few days. It came back off and on and at the worst was described as 8/10 in severity. It did not have any radiation to the neck or arm and there was no associated diaphoresis. There was no improving factors with using nitroglycerin. In the ER the patient had significant hypokalemia on her labs of 2.8 and her initial EKG was not suggestive of ST elevation or depression. Initial set of troponins was also negative. The patient has been placed under observation for further management. Past Med Surg Social Fam HX - Past Medical History Medical history: atrial fibrillation, coronary artery disease, diabetes, hyperlipidemia, hypertension Additional medical history: uterine cancer Psychiatric history: no psych history - Past Surgical History Surgical History: angioplasty/stent, cataract, hysterectomy Additional surgical history: 3 stents - Social History Smoking Status: Never smoker Smokeless Tobacco Status: No Alcohol use: none Drug use: none - Family History Mother Living Status: Hx Family Cancer: Yes Father Living Status: Hx Family Cardiac Disorders: Yes Hx Family Respiratory Disorders: No Hx Family Cancer: No Hx Family GI Disorders: No Hx Family Endocrine Disorder: No Hx Family Neuromuscular Disorders: No Hx Family Neurologic Disorders: No Hx Family HEENT Disorders: No Hx Family Autoimmune Disorders: No Internal Medicine - H&P: Meds Aspirin [Adult Low Dose Aspirin EC] 81 mg PO DAILY 08/07/15 [History] Atorvastatin [Lipitor] 40 mg PO DAILY 08/07/15 [History] Clopidogrel [Plavix] 75 mg PO DAILY 08/07/15 [History] Hydrochlorothiazide [Microzide] 12.5 mg PO DAILY 08/07/15 [History] Losartan [Cozaar] 50 mg PO DAILY 08/07/15 [History] Potassium Chloride [K-Tab ER] 20 meq PO DAILY 08/07/15 [History] metFORMIN [Glucophage] 500 mg PO BIDWM 08/07/15 [History] Carvedilol [Coreg] 6.25 mg PO BIDWM #60 tab 01/16/17 [Rx] Cefuroxime PO [Ceftin] 250 mg PO Q12HR #20 tab 01/16/17 [Rx] Furosemide [Lasix] 20 mg PO DAILY #3 tablet 06/22/18 [Rx] Allergy/AdvReac Type Severity Reaction Status Date / Time LOWELL Inhibitors Allergy See Verified 09/06/18 10:59 Comments All Systems PM: A 10-system review of systems was performed and is negative for pertinent findings except as documented above in the HPI. - Constitutional Vitals: Temp Pulse Resp BP Pulse Ox 97.9 F 71 16 122/79 96 09/06/18 10:56 09/06/18 13:30 09/06/18 13:30 09/06/18 13:30 09/06/18 13:30 Exam: GENERAL: Alert, anxious, moderate distress, cooperative EYES: PERRLA, EOMI EARS: External ears normal, canals clear OROPHARYNX: Lips, mucosa, and tongue normal. Teeth and gums normal. Oropharynx normal. NECK: No jugulovenous distention, No carotid bruits, Carotid pulse normal contour, Supple LUNGS: Lungs clear to auscultation, Good diaphragmatic excursion CARDIAC: Irregular rhythm; no rubs, murmurs, or gallops ABDOMEN: Abdomen soft, non-tender, BS normal, No masses or organomegaly EXTREMITIES: Extremities demonstrate 1+ pitting edema bilaterally, clubbing or skin discoloration. Good capillary refill., No ulcers NEURO: Gait not tested, Reflexes normal and symmetric. Sensation grossly intact, Cranial nerves II-XII intact PULSES: 2+ radial, 2+ carotid Rest of the exam is non contributory Internal Med - H&P Results - Labs CBC & Chem 7: 09/06/18 11:40 09/06/18 11:40 Labs: Short CBC 09/06/18 Range/Units 11:40 WBC 11.7 H (4.3-11.1) K/mcL Hgb 13.0 (11.5-15.4) g/dL Hct 38.2 (35.3-44.9) % Plt Count 201 (140-400) K/mcL Neutrophils # 9.1 H (1.6-8.9) K/mcL BMP 09/06/18 11:40 Sodium 137 Potassium 2.8 L Chloride 101 Carbon Dioxide 23 BUN 24 H Creatinine 0.83 Glucose 196 H Calcium 8.7 Cardiac Enzymes 09/06/18 Range/Units 11:40 Troponin I 0.03 (< 0.04) ng/mL Liver Function 09/06/18 Range/Units 11:40 Total Bilirubin 1.1 H (0.3-1.0) mg/dL AST 26 (13-39) Units/L ALT 21 (7-52) Units/L Alkaline Phosphatase 38 (34-104) Units/L Albumin 4.2 (3.5-5.7) g/dL - EKG Data -: EKG Interpreted by Myself (Irregular with PAC. No significant ST elevation or depression seen) - EKG Data Prior EKG available for review: yes (Not significantly different as compared to prior EKG) - Impressions ITS Impressions Chest X-Ray 09/06/18 11:08 IMPRESSION: No active cardiopulmonary disease D/ / Tobias Fine MD / Tobias Fine MD Interpreting Provider: Tobias Fine MD - Assessment and Plan (1) Gastroenteritis and colitis, viral Current Visit: Yes Status: Acute Assessment and plan: Most likely viral in etiology based on her presentation and chronology of symptoms. We will keep a close eye on her hydration level and if needed she could be given a cautious fluid challenge. At the time my examination the patient has eaten some broccoli and kept it down and some going to continue when necessary ond ansetron and see how she does with diet . I am hesitant giving her fluids if she truly does not need them (2) Chest pain Current Visit: Yes Status: Acute Assessment and plan: Most likely this is noncardiac given her preceding symptoms. More likely to be a GERD/gastritis type of pain in the setting of gastroenteritis and significant vomiting and diarrhea. I will try when necessary Maalox and consider adding an H2 bharath if we need to To complete her cardiac workup and given her cardiovascular history, we will check serial cardiac enzymes, place on telemetry monitoring overnight. Initial EKG does not suggest an acute ST elevation or depression and initial set up troponin is negative Qualifiers: Chest pain type: other chest pain Qualified Code(s): R07.89 - Other chest pain; R07.8 - Other chest pain (3) Hypokalemia Current Visit: Yes Status: Acute Assessment and plan: Hypokalemia significant at 2.8. In the setting of gastritis and rupal roenteritis. Has been depleted in the ER and we will replete and recheck BMP in the morning (4) Atrial fibrillation Current Visit: No Status: Chronic Assessment and plan: She appears to be rate controlled. Continue beta blockade for now She is on aspirin and Plavix for her coronary artery disease and we will continue that for now. Qualifiers: Atrial fibrillation type: paroxysmal Qualified Code(s): I48.0 - Paroxysmal atrial fibrillation (5) Hyperlipidemia Current Visit: No Status: Chronic Assessment and plan: Continue statins Qualifiers: Qualified Code(s): E78.5 - Hyperlipidemia, unspecified - Time Spent With Patient Total time spent is greater than 50% in coordination of care (as documented) at patient's floor/unit and/or counseling patient:
[2018-09-06] MEDS: *HR* Heparin 5,000 UNIT/ML VIAL SQ SCH (18:15)
[2018-09-06] MEDS: Famotidine 20 MG TABLET PO SCH (19:46)
[2018-09-07 02:04] LABS: Alanine Aminotransferase 17 Units/L (7-52); Albumin 3.7 g/dL (3.5-5.7); Albumin/Globulin Ratio 1.5 (1.1-2.2); Alkaline Phosphatase 33 Units/L (34-104); Aspartate Amino Transferase 22 Units/L (13-39); BUN/Creatinine Ratio 33 (6-26); Bilirubin,Total 0.9 mg/dL (0.3-1.0); Blood Urea Nitrogen 23 mg/dL (8-23); Calcium 8.2 mg/dL (8.6-10.3); Carbon Dioxide 22 mEq/L (23-29); Chloride 106 mEq/L (98-107); Chol/HDL Ratio 3.3 (0-4.9); Cholesterol 117 mg/dL (< 200); Globulin 2.4 g/dL (2.4-3.5); Glucose 139 mg/dL (70-105); HDL Cholesterol 35 mg/dL (40-59); LDL Cholesterol,Calculated 57 mg/dL (0-99); Osmolality,Calculated 288 (280-300); Potassium 3.7 mEq/L (3.5-5.1); Sodium 136 mEq/L (136-145); Total Protein 6.1 g/dL (6.4-8.9); Triglycerides 123 mg/dL (< 150); eGFR For Non-African Americans > 60 (> 60)
[2018-09-07 04:21] LABS: Basophils % 0.4 %; Eosinophils # 0.1 K/mcL (0.0-0.6); Eosinophils % 0.8 %; Hematocrit 35.6 % (35.3-44.9); Hemoglobin 11.8 g/dL (11.5-15.4); Immature Granulocytes % 0.4 % (0-4); Lymphocytes # 1.4 K/mcL (0.6-4.6); Lymphocytes % 14.4 %; Mean Corpuscular HGB Conc 33.1 g/dL (31.6-35.5); Mean Corpuscular Hemoglobin 30.8 pg (28.0-33.3); Mean Platelet Volume 11.3 fL (9.4-12.4); Monocytes # 1.4 K/mcL (0.0-1.3); Monocytes % 13.8 %; Neutrophils # 6.8 K/mcL (1.6-8.9); Nucleated Red Blood Cells 0.2 /100 WBC (0); Platelet Count 182 K/mcL (140-400); Red Blood Count 3.83 M/mcL (3.82-4.97); Red Cell Distribution Width 15.3 % (11.5-14.5); Segmented Neutrophils % 70.2 %
[2018-09-07] MEDS: *HR* Heparin 5,000 UNIT/ML VIAL SQ SCH ×2 (05:47→16:53)
[2018-09-07] MEDS: Famotidine 20 MG TABLET PO SCH ×2 (09:51→21:26)
[2018-09-07] MEDS: Aspirin Enteric Coated 81 MG Tablet PO SCH (09:51)
--- NOTE | 2018-09-07 13:36 | Internal Med Progress Note ---
Hospitalist Progress Note - Encounter Date of Encounter: 09/07/18 Time of Encounter: 13:33 - Subjective Interval History: I have seen and evaluated the patient at bedside. Patient reports has had 4-5 watery BM today. Reports her weakness has resolved. Denies chest pain, shortness of breath, nausea or vomiting. reported she had a colonoscopy done a couple of years ago. - Exam Vitals: Temp Pulse Resp BP Pulse Ox 97.8 F 55 16 150/75 96 09/07/18 11:15 09/07/18 11:15 09/07/18 11:15 09/07/18 11:15 09/07/18 11:15 Exam: Vitals: Reviewed. General: Alert and oriented 4. No acute distress. HEENT: Dry mucous membranes. EOM, pupils equal, round and reactive. Cardiovascular: RRR, normal S1 & S2, no rubs, gallops. III/ systolic murmur. Lungs: CTA b/l, no wheezes or crackles. Abdomen: Obese, soft, non-tender, no rigidity. Extremities: No deformity, no edema or tenderness, no joint swelling or clubbing. Neurological: Normal cognition and motor skills. Rest of the physical exam is non contributory - Assessment and Plan (1) Gastroenteritis and colitis, viral Current Visit: Yes Status: Acute Assessment and Plan: Patient reported having 4-5 watery BM today. GI panel ordered. 0.45%NS 275mls/hr 1 litter x1 ordered. (2) Atrial fibrillation Current Visit: No Status: Chronic Assessment and Plan: Rate controlled on metoprolol 25 mg by mouth daily. On aspirin 81 mg by mouth daily for secondary stroke prevention. Not on full dose anticoagulations due to high risk of falls. (3) Hyperlipidemia Current Visit: No Status: Chronic Assessment and Plan: On atorvastatin 40 mg by mouth daily. (4) Hypokalemia Current Visit: Yes Status: Resolved (5) Chest pain Current Visit: Yes Status: Resolved (6) HTN (hypertension) Current Visit: Yes Status: Chronic Assessment and Plan: Blood pressure controlled. On losartan and metoprolol. (7) CAD (coronary artery disease) Current Visit: No Status: Chronic Assessment and Plan: Patient is on dual antiplatelet therapy. (8) Diabetes Current Visit: No Status: Chronic Assessment and Plan: Patient is started on lispro low-dose sliding scale. Continue carb controlled diet. DVT Prophylaxis: On heparin subcutaneous - Summary of Assessment and Plan Summary of Assessment and Plan: Asymptomatic remain in the hospital due to acute gastroenteritis. On IV hydration. Potentially discharged water. - Time Spent with Patient Total time spent is greater than 50% in coordination of care (as documented) at patient's floor/unit and/or counseling patient: Greater than 35 minutes (40) Plan of Care Discussed with: patient (her daughter and the nurse.) Internal Medicine: Result - Labs CBC & Chem 7: 09/07/18 03:20 09/07/18 01:28 Labs: Short CBC 09/07/18 Range/Units 03:20 WBC 9.8 (4.3-11.1) K/mcL Hgb 11.8 (11.5-15.4) g/dL Hct 35.6 (35.3-44.9) % Plt Count 182 (140-400) K/mcL Neutrophils # 6.8 (1.6-8.9) K/mcL BMP 09/07/18 01:28 Sodium 136 Potassium 3.7 D Chloride 106 Carbon Dioxide 22 L BUN 23 Creatinine 0.69 Glucose 139 H Calcium 8.2 L Cardiac Enzymes 09/06/18 09/07/18 09/07/18 Range/Units 17:39 01:28 09:25 Troponin I < 0.03 < 0.03 < 0.03 (< 0.04) ng/mL Liver Function 09/07/18 Range/Units 01:28 Total Bilirubin 0.9 (0.3-1.0) mg/dL AST 22 (13-39) Units/L ALT 17 (7-52) Units/L Alkaline Phosphatase 33 L (34-104) Units/L Albumin 3.7 (3.5-5.7) g/dL - ABG Interpretation ABG results: PT/INR, D-dimer PT 12.0 Seconds (9.4-12.1) 09/06/18 11:40 Consult Discharge Plan - Plan Referrals: Tomas Gallegos DO [Primary Care Provider] - (2) Atrial fibrillation Qualifiers: Atrial fibrillation type: paroxysmal Qualified Code(s): I48.0 - Paroxysmal atrial fibrillation (3) Hyperlipidemia Qualifiers: Qualified Code(s): E78.5 - Hyperlipidemia, unspecified (5) Chest pain Qualifiers: Chest pain type: other chest pain Qualified Code(s): R07.89 - Other chest pain; R07.8 - Other chest pain (6) HTN (hypertension) Qualifiers: Hypertension type: unspecified Qualified Code(s): I10 - Essential (primary) hypertension (7) CAD (coronary artery disease) Qualifiers: Qualified Code(s): I25.10 - Atherosclerotic heart disease of [place] coronary artery without angina pectoris (8) Diabetes Qualifiers: Diabetes mellitus type: type 2 Diabetes mellitus child center assistant insulin use: without penitentiary use Diabetes mellitus complication status: with unspecified complications Qualified Code(s): E11.8 - Type 2 diabetes mellitus with unspecified complications
[2018-09-07] MEDS: Insulin LISPRO 300 UNITS/3 ML VIAL SQ SCH (16:53)
--- NOTE | 2018-09-07 21:17 | Electrocardiograph Report ---
[place] [facility] Test Date: 2018-09-06 Pat Name: Sharda Urena Department: EXAM4 Room: 2A34 Gender: F Clinical Informatics Educator: : 1930 Requested By: Chavez Bailey Order Number: [id number] Reading MD: David Jones Measurements Intervals [place] Rate: 61 P: 210 AK: 175 QRS: 5 QRSD: 107 T: 72 QT: 413 QTc: 416 Interpretive Statements Sinus Rhythm with PACs Electronically Signed On 09-07-2018 21:16:13 EDT by David Jones
[2018-09-07 21:22] LABS: Adenovirus F 40/41 PCR Not detected (Not detect); Astrovirus PCR Not detected (Not detect); C.difficile Toxin A/B Gene PCR Not detected (Not detect); Campylobacter by PCR Not detected (Not detect); Cryptosporidium by PCR Not detected (Not detect); Cyclospora cayetanensis PCR Not detected (Not detect); E. coli O157 by PCR Not detected (Not detect); Entamoeba histolytica PCR Not detected (Not detect); Enteroaggregative E.coli(EAEC) Not detected (Not detect); Enteropathogenic E.coli(EPEC) Not detected (Not detect); Enterotoxigenic E.coli (ETEC) Not detected (Not detect); Giardia lamblia PCR Not detected (Not detect); Norovirus GI/GII PCR Not detected (Not detect); Plesiomonas shigelloides PCR Not detected (Not detect); Rotavirus A PCR DETECTED (Not detect); Salmonella PCR Not detected (Not detect); Sapovirus PCR Not detected (Not detect); Shig/EnteroinvasiveE coli EIEC Not detected (Not detect); Shigalike tox-prod E coli STEC Not detected (Not detect); Vibrio PCR Not detected (Not detect); Vibrio cholerae PCR Not detected (Not detect); Yersinia enterocolitica PCR Not detected (Not detect)
[2018-09-08] MEDS: *HR* Heparin 5,000 UNIT/ML VIAL SQ SCH (05:01)
[2018-09-08] MEDS: Aspirin Enteric Coated 81 MG Tablet PO SCH (08:37)
[2018-09-08] MEDS: Famotidine 20 MG TABLET PO SCH (08:37)
[2018-09-08] MEDS: Insulin LISPRO 300 UNITS/3 ML VIAL SQ SCH (08:37)
--- NOTE | 2018-09-08 11:17 | Discharge Summary ---
Orders not resulted at time of discharge: Pending orders 09/08/18 10:49 Basic Metabolic Panel AM 0400 Magnesium AM 0400 Phosphorous AM 0400 Date of Encounter: 09/08/18 Time of Encounter: 11:13 - Discharge Diagnosis (1) Gastroenteritis and colitis, viral Priority: Primary Status: Acute (2) Atrial fibrillation Priority: Secondary Status: Chronic Qualifiers: Atrial fibrillation type: paroxysmal Qualified Code(s): I48.0 - Paroxysmal atrial fibrillation (3) Hyperlipidemia Priority: Secondary Status: Chronic Qualifiers: Qualified Code(s): E78.5 - Hyperlipidemia, unspecified (4) Hypokalemia Priority: Secondary Status: Resolved (5) Chest pain Priority: Secondary Status: Resolved Qualifiers: Chest pain type: other chest pain Qualified Code(s): R07.89 - Other chest pain; R07.8 - Other chest pain (6) HTN (hypertension) Priority: Secondary Status: Chronic Qualifiers: Hypertension type: unspecified Qualified Code(s): I10 - Essential (primary) hypertension (7) CAD (coronary artery disease) Priority: Secondary Status: Chronic Qualifiers: Coronary Disease-Associated Artery/Lesion type: unspecified vessel or lesion type Associated angina: angina presence unspecified Qualified Code(s): I25.811 - Atherosclerosis of [place] coronary artery of transplanted heart without angina pectoris (8) Diabetes Priority: Secondary Status: Chronic Qualifiers: Diabetes mellitus type: type 2 Diabetes mellitus half-way insulin use: without long term care social worker use Diabetes mellitus complication status: with unspecified complications Qualified Code(s): E11.8 - Type 2 diabetes mellitus with unspecified complications Hospital course: Ms. Urena is a 88 year old female past medical history of atrial fibrillation, coronary artery disease, diabetes type 2 without any insulin who presented today with nausea and vomiting which has been going on for about a week, diarrhea which is nonbloody and nonbilious again going on for about 4 days and last 2-3 days of substernal chest pain which has gotten worse in the last 48 hours. In the ER the patient had significant hypokalemia on her labs of 2.8 and her initial EKG was not suggestive of ST elevation or depression. Initial set of troponins was also negative. The patient has been placed under observation for further management. Patient admitted due to diarrhea and hypokalemia. GI panel positive for rotavirus A. Patient was managed with IV hydration and electrolytes replacement. Patient reports no bowel movement today. hemodynamically stable to be discharged home. - Time Spent with Patient Total time spent providing and/or coordinating discharge services: Time spent: Greater than 30 minutes (35) - Discharge Medications Prescriptions: Continue Atorvastatin [Lipitor] 40 mg PO DAILY metFORMIN [Glucophage] 500 mg PO BIDWM Losartan [Cozaar] 50 mg PO DAILY Clopidogrel [Plavix] 75 mg PO DAILY Potassium Chloride [K-Tab ER] 20 meq PO DAILY Furosemide [Lasix] 20 mg PO DAILY #3 tablet Aspirin [Lo-Dose Aspirin EC] 81 mg PO DAILY hydroCHLOROthiazide [Hydrochlorothiazide] 12.5 mg PO DAILY Metoprolol [Lopressor] 25 mg PO BID Home Medications: Atorvastatin [Lipitor] 40 mg PO DAILY 08/07/15 [History] Clopidogrel [Plavix] 75 mg PO DAILY 08/07/15 [History] Losartan [Cozaar] 50 mg PO DAILY 08/07/15 [History] Potassium Chloride [K-Tab ER] 20 meq PO DAILY 08/07/15 [History] metFORMIN [Glucophage] 500 mg PO BIDWM 08/07/15 [History] Furosemide [Lasix] 20 mg PO DAILY #3 tablet 06/22/18 [Rx] Aspirin [Lo-Dose Aspirin EC] 81 mg PO DAILY 09/06/18 [History] Metoprolol [Lopressor] 25 mg PO BID 09/06/18 [History] hydroCHLOROthiazide [Hydrochlorothiazide] 12.5 mg PO DAILY 09/06/18 [History] Allergies/Adverse Reactions: Allergy/AdvReac Type Severity Reaction Status Date / Time LOWELL Inhibitors Allergy See Verified 09/06/18 10:59 Comments Date of admission: 09/06/18 17:01 Primary care physician: Tomas Gallegos, - Constitutional Vitals: Temp Pulse Resp BP Pulse Ox 98.2 F 62 18 150/66 95 09/08/18 06:54 09/08/18 06:54 09/08/18 06:54 09/08/18 06:54 09/08/18 06:54 Exam: Vitals: Reviewed. General: Alert and oriented 4. No acute distress. Cardiovascular: RRR, normal S1 & S2, no rubs, gallops. III/ systolic murmur. Lungs: CTA b/l, no wheezes or crackles. Abdomen: Obese, soft, non-tender, no rigidity. NABS in all 4 quadrants Extremities: No deformity, no edema Neurological: Normal cognition Rest of the physical exam is non contributory - Patient Status Disposition: Home, Self-Care Condition: Good Functional capacity at discharge: independent ambulation Overall status at discharge: patient is back to baseline - Discharge Instructions Follow Up With: Tomas Gallegos DO [Primary Care Provider] - - Diet and Activity Activity: resume usual activities as tolerated Diet: low salt diet
[2018-09-08 11:22] LABS: BUN/Creatinine Ratio 26 (6-26); Blood Urea Nitrogen 20 mg/dL (8-23); Calcium 8.7 mg/dL (8.6-10.3); Carbon Dioxide 21 mEq/L (23-29); Chloride 105 mEq/L (98-107); Glucose 141 mg/dL (70-105); Magnesium 2.3 mg/dL (1.6-2.6); Osmolality,Calculated 287 (280-300); Phosphorous 2.3 mg/dL (2.7-4.5); Potassium 3.7 mEq/L (3.5-5.1); Sodium 136 mEq/L (136-145); eGFR For Non-African Americans > 60 (> 60)
[2018-09-08 11:24] VITALS: BP 134/62
== END 2018-09-08 12:11 | disposition home or self-care (01) ==
LOC: SUATTDRO → 2ANU 10:52 → EMEROOARM 10:52 → 2ANU 17:18
PROVIDERS: ADMIT Internal Medicine Nephrology; ATTEND Internal Medicine